=== PATIENT | male | born 1935 | race Caucasian/White ===

== ENCOUNTER 2018-06-25 13:23 | Inpatient (IN) | payer OTHER ==
[~2018-06-25] VITALS: Ht 180.3 cm; Wt 90.0 kg
[~2018-06-25 13:23] MED LIST: ASPI-1152 PO; ASPI-605 PO; FINA5TAB11 PO; FINA5TAB3 PO; GLIP2.5T3 PO; LISI-603 PO; LISI10TA5 PO; METF-440 PO; POLY15DR40 RIGHTEYE; SIMV20TA6 PO; SIMV40TA5 PO; TAMS0.4C34 PO; TRAZ-182 PO
[2018-06-25] MEDS ORDERED: PIPERACILLIN /TAZOBACTAM 3.375 G in IV D5W 50 ML IV ONE (14:00)
[2018-06-25] MEDS ORDERED: VANCOMYCIN 1 GM in IV D5W 250 ML IV ONE (14:00)
[2018-06-25 14:05] LABS: BASOPHILS # (AUTO) 0.1 /CMM (0.0-0.2); BASOPHILS % (AUTO) 0.9 % (0.0-2.0); EOSINOPHILS % (AUTO) 0.1 % (0.0-6.0); HEMATOCRIT 36 % (39-51); HEMOGLOBIN 12.6 g/dL (13.5-17.5); LYMPHOCYTES # (AUTO) 0.9 /CMM (0.8-4.8); LYMPHOCYTES % (AUTO) 5.8 % (20.0-44.0); MEAN CORPUSCULAR HGB CONC 35 g/dl (31.0-36.0); MEAN CORPUSCULAR VOLUME 94 fL (80-96); MONOCYTES # (AUTO) 1.1 /CMM (0.1-1.30); MONOCYTES % (AUTO) 7.5 % (2.0-12.0); NEUTROPHILS # (AUTO) 12.8 /CMM (1.8-8.9); NEUTROPHILS % (AUTO) 85.7 % (43.0-81.0); PLATELET COUNT (AUTO) 220 /CMM (150-450); RDW COEFFICIENT OF VARIATION 13.8 (11.5-15.0); RED BLOOD CELL COUNT(AUTO) 3.81 MIL/uL (4.5-6.0); WHITE BLOOD COUNT (AUTO) 14.9 K/uL (4.3-11.0)
[2018-06-25 14:14] LABS: CALCIUM, SERUM 9.1 mg/dL (8.5-10.1); CARBON DIOXIDE 26 mmol/L (21-32); CHLORIDE 105 mmol/L (98-107); GLUCOSE 105 mg/dL (74-106); POTASSIUM 3.8 mmol/L (3.5-5.1); SODIUM SERUM 139 mmol/L (136-145); UREA NITROGEN, BLOOD 14 mg/dL (7-18)
[2018-06-25 14:18] LABS: INR 0.92 (0.85-1.15)
[2018-06-25 14:22] LABS: TROPONIN I < 0.017 ng/mL (0.00-0.056)
[2018-06-25 14:30] LABS: ALANINE AMINOTRANSFERASE 32 U/L (12-78); ALBUMIN 3.5 g/dL (3.4-5.0); ALKALINE PHOSPHATASE 78 U/L (46-116); ASPARTATE AMINOTRANSFERASE 18 U/L (15-37); BILIRUBIN,DIRECT 0.2 mg/dL (0.0-0.2); BILIRUBIN,TOTAL 0.8 mg/dL (0.2-1.0); TOTAL PROTEIN, SERUM 7.1 g/dL (6.4-8.2)
[2018-06-25 14:32] LABS: LYMPHOCYTES % (MANUAL) 6 % (16-48); NEUTROPHILS % (MANUAL) 86 (42-76); REACTIVE LYMPHOCYTES 8 % (0-0)
[2018-06-25] MEDS ORDERED: AMLO10TA6 PO (14:57)
[2018-06-25] MEDS ORDERED: ATOR40TA PO (14:58)
--- NOTE | 2018-06-25 17:34 | NUR ---
PANEL ON-CALL PAGED
--- NOTE | 2018-06-25 18:39 | NUR ---
REPORT GIVEN TO THE FLOOR NURSE; ACCEPTED BY SHAI GARG- CONTINUE PLAN OF CARE
[2018-06-25 18:50] VITALS: BP 142/62
--- NOTE | 2018-06-25 19:00 | NUR ---
RN OPENING NOTES PT AWAKE AND RESTING IN BED. FAMILY AT BEDSIDE. LABORATORY ENGINEER BRITANY LOVE IN PT ROOMS INTERVIEWING FOR ADMISSION. PT STATES THAT HE STEPPED ON BROKEN GLASS ABOUT 3 DAYS AGO AND HAS NOTICED THAT HIS RIGHT FOOT/LEG HAS BECOME INCREASINGLY MORE RED AND WARM TO THE TOUCH. THE PATIENT HAS A LEFT FOREARM IV #20 INTACT AND PATENT. NO COMPLAINTS OF PAIN , DISTRESS OR SOB AT THIS TIME. PER DAY SHIFT NURSE PATIENT ARRIVED ON TO THE UNIT AT 1820. WILL COMPLETE THE PATIENT'S ADMISSION. ORIENTED PATIENT TO THE USE OF THE CALL LIGHT. SAFETY PRECAUTIONS IN PLACE, BED IN LOWEST LOCKED POSITION, X2 SIDE RAILS UP AND CALL LIGHT WITHIN REACH. WILL CONTINUE TO MONITOR.
[2018-06-25] MEDS ORDERED: ACETAMINOPHEN 325 MG TABLET PO PRN (20:00)
[2018-06-25] MEDS ORDERED: Z GUARD REMEDY 2 OZ OINT TP PRN (20:00)
[2018-06-25] MEDS ORDERED: ONDANSETRON HCL/PF 4 MG/2 ML VIAL IVP PRN (20:00)
[2018-06-25] MEDS ORDERED: MORPHINE SULFATE INJ 4 MG/ML DISP.SYRIN IV PRN (20:00)
[2018-06-25] MEDS ORDERED: HYDROCODONE/APAP 5/325MG 1 EACH TABLET PO PRN (20:00)
[2018-06-25] MEDS ORDERED: MAGNESIUM HYDROXIDE 30 ML UDC PO PRN (20:00)
[2018-06-25] MEDS ORDERED: MAG HYDROX/AL HYDROX/SIMETH 30 ML UDC PO PRN (20:00)
[2018-06-25] MEDS ORDERED: FEE PK DOSING 1 MIN EA MC ONE (20:04)
[2018-06-25 20:17] VITALS: BP 129/67
[2018-06-25] MEDS: PIPERACILLIN /TAZOBACTAM 3.375 G in IV D5W 50 ML IV SCH (21:27)
[2018-06-25] MEDS: ATORVASTATIN 40 MG TABLET PO SCH (21:28)
[2018-06-25] MEDS: ENOXAPARIN SODIUM 40 MG/0.4 ML DISP.SYRIN SQ SCH (21:29)
[2018-06-26] MEDS: VANCOMYCIN 1 GM in IV D5W 250 ML IV SCH ×2 (01:34→14:18)
[2018-06-26] MEDS: PIPERACILLIN /TAZOBACTAM 3.375 G in IV D5W 50 ML IV SCH ×4 (03:22→20:43)
--- NOTE | 2018-06-26 06:35 | NUR ---
RN CLOSING NOTES PT RESTING IN BED. NO COMPLAINTS OF PAIN, SOB OR DISTRESS OVERNIGHT. THE PATIENT HAS A LEFT FOREARM IV #20 INTACT AND PATENT. SAFETY PRECAUTIONS IN PLACE, BED IN LOWEST LOCKED POSITION, X2 SIDE RAILS UP AND CALL LIGHT WITHIN REACH. WILL ENDORSE TO DAY SHIFT NURSE FOR CONTINUITY OF CARE.
[2018-06-26 07:04] LABS: BASOPHILS % (AUTO) 0.3 % (0.0-2.0); EOSINOPHILS % (AUTO) 1.3 % (0.0-6.0); HEMATOCRIT 36 % (39-51); HEMOGLOBIN 11.9 g/dL (13.5-17.5); LYMPHOCYTES # (AUTO) 1.5 /CMM (0.8-4.8); LYMPHOCYTES % (AUTO) 13.7 % (20.0-44.0); MEAN CORPUSCULAR HGB CONC 33 g/dl (31.0-36.0); MEAN CORPUSCULAR VOLUME 96 fL (80-96); MONOCYTES # (AUTO) 1.1 /CMM (0.1-1.30); MONOCYTES % (AUTO) 9.9 % (2.0-12.0); NEUTROPHILS # (AUTO) 8.2 /CMM (1.8-8.9); NEUTROPHILS % (AUTO) 74.8 % (43.0-81.0); PLATELET COUNT (AUTO) 224 /CMM (150-450); RDW COEFFICIENT OF VARIATION 14.8 (11.5-15.0)
[2018-06-26 07:13] LABS: CALCIUM, SERUM 8.8 mg/dL (8.5-10.1); CARBON DIOXIDE 25 mmol/L (21-32); CHLORIDE 105 mmol/L (98-107); CREATININE 0.9 mg/dL (0.6-1.3); GLUCOSE 70 mg/dL (74-106); POTASSIUM 3.1 mmol/L (3.5-5.1); SODIUM SERUM 141 mmol/L (136-145); UREA NITROGEN, BLOOD 12 mg/dL (7-18)
[2018-06-26 07:14] LABS: MAGNESIUM 1.7 mg/dL (1.8-2.4); PHOSPHORUS 3.6 mg/dL (2.5-4.9)
--- NOTE | 2018-06-26 07:15 | NUR ---
MSRN. PT RECEIVED A&0X3. PT TOLERATING ROOM AIR WITHOUT DISTRESS AND DENIES PAIN AT THIS TIME. PT WITH IVC AT L FA INTACT AND SALINE FLUSH PATENT. PT WITH R LE ELEVATED, EXT IS HOT TO TOUCH WITH EDEMA +1, CMS, CAP REFILL <2SECS. PT BED IN LOWEST LOCKED POSITION WITH HANDRAILSX2 AND CALL WHELAN AND URINAL WITHIN REACH. PT LABS RV'D WITH PT AND PT BRIEFED ON TODAY'S POC, PT IS WITHOUT CONCERN OR COMPLAINT AT THIS TIME, WILL CONTINUE POC.
[2018-06-26 07:21] LABS: CHOLESTEROL 100 mg/dL (<200); HDL CHOLESTEROL 44 mg/dL (40-60); LDL 56 mg/dL (0-99); TRIGLYCERIDES 70 mg/dL (30-150)
[2018-06-26 08:00] VITALS: BP 131/76
[2018-06-26] MEDS ORDERED: POTASSIUM CHLORIDE 20 MEQ TAB.PRT.SR PO ONE (09:00)
[2018-06-26] MEDS: glipiZIDE XL 2.5 MG TAB.OSM.24 PO SCH (09:18)
[2018-06-26] MEDS: TAMSULOSIN 0.4 MG CAP.SR.24H PO SCH (09:18)
[2018-06-26] MEDS: FINASTERIDE (5 MG) 5 MG TABLET PO SCH (09:18)
[2018-06-26] MEDS: AMLODIPINE BESYLATE 10 MG TABLET PO SCH (09:19)
[2018-06-26] MEDS: LISINOPRIL (10MG) 10 MG TABLET PO SCH (09:19)
[2018-06-26] MEDS ORDERED: LIDOCAINE 1% INJ 50 ML MDV IJ STA (10:29)
[2018-06-26] MEDS: Magnesium 1GM/D5W 100ML PREMIX 100 ML IV SCH ×2 (10:40→17:12)
--- NOTE | 2018-06-26 10:50 | NUR ---
PT RV WITH MD HDEZ, DEBRIDEMENT PLANNED TODAY, CONSENT IN CHART.
[2018-06-26 16:00] VITALS: BP 119/59
--- NOTE | 2018-06-26 16:00 | NUR ---
PT WALKING AROUND ON BANDAGE, WITH BLEED THROUGH DRESSING. PT VERY ANXIOUS R/T TO HIS WORK. DRESSING REPLACED, NO CONT BLEEDING. PT REMINDED NOT TO WALK ON FOOT AT THIS TIME
--- NOTE | 2018-06-26 19:26 | NUR ---
MSRN. PT REMAINS A&0X3, TOLERATING ROOM AIR AND DENIES PAIN AT THIS TIME. PT WITH IVC AT L FA INTACT AND SL. PT WITH R LE ELEVATED AND DRESSING INTACT. PT BED IN LOWEST LOCKED POSITION WITH HANDRAILSX2 AND CALL WHELAN AND URINAL WITHIN REACH. ALL DAY NURSE DUTIES ATTENDED TO AND PT IS WITHOUT CONCERN OR COMPLAINT. WILL ENDORSE TO NIGHT NURSE AT BEDSIDE FOR DASH.
--- NOTE | 2018-06-26 19:30 | NUR ---
MS RN NOTES RECEIVED ON BED A/O X4,S/P RIGHT FOOT DEBRIDEMENT BY DR LOBO TODAY.DRESSING INTACT AND DRY,ELEVATED ON PILLOWS.SALINE LOCK LFA INTACT AND PATENT.DENIES PAIN AT THE MOMENT.CALL LIGHT IN REACH,NEEDS ANTICIPATED.
--- NOTE | 2018-06-26 19:35 | NUR ---
JUSTOWRITER OPERATOR NOTES RECEIVED ON BED,A/O X3,BREATHING NORMAL,WITH GARBLED SPEECH DUE TO TOUNGE CA.NOTED TOO MUCH SECRETIONS,SUCTION SELF.WITH JEVITY 1.2 GT FEEDING AT 240ML/HR RATE 5X A DAY.WITH IVF OF NS 75ML/HR RATE RUNNING IN LEFT FOOT,SALINE LOCK LAC # 20 INTACT AND PATENT.WILL CONTINUE TO MONITOR STATUS,CALL LIGHT IN REACH,NEEDS ANTICIPATED.
[2018-06-26 20:00] VITALS: BP 120/70
[2018-06-26] MEDS: ENOXAPARIN SODIUM 40 MG/0.4 ML DISP.SYRIN SQ SCH (20:47)
[2018-06-26] MEDS: ATORVASTATIN 40 MG TABLET PO SCH (21:46)
--- NOTE | 2018-06-26 22:35 | NUR ---
MS RN NOTES PAIN MANAGEMENT C/O RIGHT FOOT PAIN 6/10 ON PAIN SCALE,MEDICATED WITH NORCO 5/325MG,1 TAB PO ORDERED.
[2018-06-27] MEDS: VANCOMYCIN 1 GM in IV D5W 250 ML IV SCH (01:59)
[2018-06-27] MEDS: PIPERACILLIN /TAZOBACTAM 3.375 G in IV D5W 50 ML IV SCH ×2 (03:10→08:40)
--- NOTE | 2018-06-27 06:37 | NUR ---
MS RN NOTES A/O X4,PAIN MANAGEMENT EFFECTIVE,IV ABX TOLERATED WELL.IN NO ACUTE DISTRESS.WILL ENDORSE TO DAY NURSE FOR DASH.
[2018-06-27 06:59] LABS: BASOPHILS # (AUTO) 0.1 /CMM (0.0-0.2); BASOPHILS % (AUTO) 0.8 % (0.0-2.0); HEMATOCRIT 37 % (39-51); HEMOGLOBIN 12.1 g/dL (13.5-17.5); LYMPHOCYTES # (AUTO) 1.5 /CMM (0.8-4.8); LYMPHOCYTES % (AUTO) 15.1 % (20.0-44.0); MEAN CORPUSCULAR HGB CONC 33 g/dl (31.0-36.0); MEAN CORPUSCULAR VOLUME 96 fL (80-96); MONOCYTES % (AUTO) 10.7 % (2.0-12.0); NEUTROPHILS % (AUTO) 71.4 % (43.0-81.0); PLATELET COUNT (AUTO) 229 /CMM (150-450); RDW COEFFICIENT OF VARIATION 14.3 (11.5-15.0); WHITE BLOOD COUNT (AUTO) 9.8 K/uL (4.3-11.0)
[2018-06-27 07:01] LABS: CALCIUM, SERUM 8.5 mg/dL (8.5-10.1); CARBON DIOXIDE 25 mmol/L (21-32); CHLORIDE 106 mmol/L (98-107); CREATININE 0.9 mg/dL (0.6-1.3); GLUCOSE 81 mg/dL (74-106); MAGNESIUM 2.3 mg/dL (1.8-2.4); POTASSIUM 3.4 mmol/L (3.5-5.1); SODIUM SERUM 141 mmol/L (136-145); UREA NITROGEN, BLOOD 10 mg/dL (7-18)
--- NOTE | 2018-06-27 07:59 | NUR ---
MS RN OPENING NOTES RECEIVED PT FROM NIGHTSHIFT NURSE IN STABLE CONDITION. PT IS A/O X4. NO SOB OR ACUTE SIGNS OF DISTRESS NOTED. RESPIRATIONS EVEN AND UNLABORED. PT ON RA AND SATING WELL. HE DENIES PAIN AT THIS TIME. IV TO LEFT FA NOTED TO BE PATENT AND INTACT. NO REDNESS OR SIGNS OF INFILTRATION NOTED. DRESSING TO RIGHT FOOT NOTED TO BE CLEAN, DRY, AND INTACT. BED IN LOW LOCKED POSITION, SIDE RAILS UP X2, CALL LIGHT WITHIN PT'S REACH. WILL CONTINUE TO MONITOR
[2018-06-27] MEDS ORDERED: SULF1TAB48 PO (08:12)
[2018-06-27] MEDS ORDERED: CIPR-262 PO (08:12)
[2018-06-27 08:19] VITALS: BP 128/70
[2018-06-27] MEDS ORDERED: POTASSIUM CHLORIDE 20 MEQ TAB.PRT.SR PO ONE (08:30)
[2018-06-27] MEDS: LISINOPRIL (10MG) 10 MG TABLET PO SCH (08:40)
[2018-06-27 08:41] VITALS: BP 128/70
[2018-06-27] MEDS: AMLODIPINE BESYLATE 10 MG TABLET PO SCH (08:41)
[2018-06-27] MEDS: glipiZIDE XL 2.5 MG TAB.OSM.24 PO SCH (08:41)
[2018-06-27] MEDS: FINASTERIDE (5 MG) 5 MG TABLET PO SCH (08:41)
[2018-06-27] MEDS: TAMSULOSIN 0.4 MG CAP.SR.24H PO SCH (08:42)
--- NOTE | 2018-06-27 12:46 | NUR ---
MS COOK TORTILLA NOTES PT WAS DISCHARGED FROM FACILITY IN STABLE CONDITION. ALL NEEDS WERE MET DURING SHIFT AND ORDERS CARRIED OUT ACCORDINGLY. ALL DUE MEDS GIVEN. WOUND CARE RENDERED PRIOR TO D/C BY . WOUND DRESSINGS NOTED TO BE CLEAN, DRY, AND INTACT. IV WAS SUCCESSFULLY REMOVED WITH NO COMPLICATIONS NOTED. D/C PHOTOS TAKEN AND PLACED IN PT'S CHART. PT NOTIFIED THAT [facility] WILL CONTACT HIM TO MAKE FURTHER ARRANGEMENTS. PRESCRIPTION CALLED IN TO PT'S PREFERRED PHARMACIST. PT ALSO PROVIDED WITH WRITTEN PRESCRIPTION. HE VERBALIZED FULL UNDERSTANDING OF D/C INSTRUCTIONS AND SIGNED ALL PAPERWORK. HE WAS SAFELY ESCORTED TO MAIN LOBBY AND LEFT VIA TAXI WITH ALL BELONGINGS
== END 2018-06-27 12:15 | disposition home health service (06) | DRG 623 ==
LOC: ER 13:27 → MED 18:32 → MERGE 18:32
PROVIDERS: ADMIT Internal Medicine; ATTEND Internal Medicine
PROC: 0JBQ0ZZ Excision of Right Foot Subcutaneous Tissue and Fascia, Open Approach (ICD-10-PCS; principal; 2018-06-26)
DX: E11.621 Type 2 diabetes mellitus with foot ulcer (principal); L03.115 Cellulitis of right lower limb; N40.0 Benign prostatic hyperplasia without lower urinary tract symptoms; E78.5 Hyperlipidemia, unspecified; H26.9 Unspecified cataract; E11.42 Type 2 diabetes mellitus with diabetic polyneuropathy; I10 Essential (primary) hypertension; H54.40 Blindness, one eye, unspecified eye; Z79.84 Long term (current) use of oral hypoglycemic drugs; E87.6 Hypokalemia; D63.8 Anemia in other chronic diseases classified elsewhere; S91.319A Laceration without foreign body, unspecified foot, initial encounter; L97.519 Non-pressure chronic ulcer of other part of right foot with unspecified severity; W25.XXXA Contact with sharp glass, initial encounter
CPT/HCPCS: 36415; 71045-TC; 73630-TC; 80048-TC; 80061-TC; 80076-TC; 83605-TC; 83735-TC; 84100-TC; 84443-TC; 84484-TC; 85025-TC; 85730-TC; 87040-TC; 87070-TC; 87081-TC; 93971-TC; A4606; A6253; A6402; A6403; A6407; J1650; J2543; J3370; J3475; J3490; J7050; J7060; Z7610

== ENCOUNTER 2018-07-05 20:00 | Emergency (ER) | payer OTHER ==
[~2018-07-05] VITALS: Ht 180.3 cm; Wt 89.8 kg
[~2018-07-05 20:00] MED LIST changes: +AMLO10TA6 PO; -ASPI-1152 PO; +ATOR40TA PO; +CIPR-262 PO; -POLY15DR40 RIGHTEYE; -SIMV40TA5 PO; +SULF1TAB48 PO; -TRAZ-182 PO
[2018-07-05 20:06] VITALS: BP 113/60
[2018-07-06] MEDS ORDERED: CIPR-262 PO (11:50)
[2018-07-06] MEDS ORDERED: SULF1TAB48 PO (11:50)
[2018-07-08] MEDS ORDERED: VANC1PLA11 IV (08:23)
== END 2018-07-05 20:28 | disposition home or self-care (01) ==
LOC: ER 20:03
DX: E11.649 Type 2 diabetes mellitus with hypoglycemia without coma (principal); I10 Essential (primary) hypertension; E78.00 Pure hypercholesterolemia, unspecified; E78.5 Hyperlipidemia, unspecified; Z87.442 Personal history of urinary calculi; Z79.82 Long term (current) use of aspirin; Z60.2 Problems related to living alone
CPT/HCPCS: 82962; 99282; A4606; Z7610

== ENCOUNTER 2018-07-06 11:19 | Inpatient (IN) | payer OTHER ==
[~2018-07-06] VITALS: Ht 175.3 cm; Wt 93.9 kg
[2018-07-06] MEDS ORDERED: DEXTROSE 50%-WATER 50 ML DISP.SYRIN ONE ×2 (11:31→17:53)
[2018-07-06 11:45] LABS: BASOPHILS % (AUTO) 0.3 % (0.0-2.0); HEMATOCRIT 37 % (39-51); HEMOGLOBIN 12.2 g/dL (13.5-17.5); LYMPHOCYTES # (AUTO) 0.8 /CMM (0.8-4.8); LYMPHOCYTES % (AUTO) 12.6 % (20.0-44.0); MEAN CORPUSCULAR HGB CONC 33 g/dl (31.0-36.0); MEAN CORPUSCULAR VOLUME 92 fL (80-96); MONOCYTES # (AUTO) 0.5 /CMM (0.1-1.30); MONOCYTES % (AUTO) 7.4 % (2.0-12.0); NEUTROPHILS # (AUTO) 4.8 /CMM (1.8-8.9); NEUTROPHILS % (AUTO) 79.7 % (43.0-81.0); PLATELET COUNT (AUTO) 432 /CMM (150-450); RDW COEFFICIENT OF VARIATION 13.9 (11.5-15.0); RED BLOOD CELL COUNT(AUTO) 3.98 MIL/uL (4.5-6.0); WHITE BLOOD COUNT (AUTO) 6.1 K/uL (4.3-11.0)
[2018-07-06] MEDS ORDERED: CIPR-262 PO (11:50)
[2018-07-06] MEDS ORDERED: SULF1TAB48 PO (11:50)
[2018-07-06 12:00] LABS: INR 0.95 (0.85-1.15)
[2018-07-06] MEDS ORDERED: IV NS 0.9% 500 ML BAG IV ONE (12:00)
[2018-07-06] MEDS ORDERED: DEXTROSE 50%-WATER 50 ML DISP.SYRIN IV ONE (12:00)
[2018-07-06 12:02] LABS: ALANINE AMINOTRANSFERASE 452 U/L (12-78); ALBUMIN 2.9 g/dL (3.4-5.0); ALKALINE PHOSPHATASE 509 U/L (46-116); ASPARTATE AMINOTRANSFERASE 274 U/L (15-37); BILIRUBIN,DIRECT 0.2 mg/dL (0.0-0.2); BILIRUBIN,TOTAL 0.4 mg/dL (0.2-1.0); CALCIUM, SERUM 9.3 mg/dL (8.5-10.1); CARBON DIOXIDE 24 mmol/L (21-32); CHLORIDE 107 mmol/L (98-107); CREATININE 1.2 mg/dL (0.6-1.3); GLUCOSE 53 mg/dL (74-106); POTASSIUM 4.4 mmol/L (3.5-5.1); SODIUM SERUM 140 mmol/L (136-145); TOTAL PROTEIN, SERUM 6.9 g/dL (6.4-8.2); UREA NITROGEN, BLOOD 9 mg/dL (7-18)
[2018-07-06 12:04] LABS: TROPONIN I < 0.017 ng/mL (0.00-0.056)
[2018-07-06 12:15] LABS: SERUM AMMONIA 22 umol/L (11-32)
[2018-07-06 12:27] LABS: THYROID STIMULATING HORMONE 2.661 uIU/mL (0.358-3.74)
[2018-07-06 14:16] LABS: APPEARANCE,URINE Clear (CLEAR); BILIRUBIN,URINE Negative (NEGATIVE); BLOOD, URINE Negative Ery/uL (NEGATIVE); COLOR,URINE Yellow (YELLOW); KETONES,URINE Negative (NEGATIVE); LEUKOCYTE ESTERASE ,URINE Negative (NEGATIVE); NITRITE, URINE Negative (NEGATIVE); PROTEIN,URINE Negative (NEGATIVE); UGLUCOSE Negative (NEGATIVE); UROBILINOGEN,URINE 0.2 EU/dL (0.2)
[2018-07-06 15:15] VITALS: BP 123/56
[2018-07-06 16:00] VITALS: BP 123/56
[2018-07-06] MEDS ORDERED: TRAZODONE 50 MG TABLET PO PRN (16:30)
[2018-07-06] MEDS ORDERED: IV D5/0.45 NACL 1,000 ML IV PRN (16:30)
[2018-07-06] MEDS ORDERED: ACETAMINOPHEN 325 MG TABLET PO PRN (16:30)
[2018-07-06] MEDS: BLOOD SUGAR DIAGNOSTIC 1 EACH STRIP IN SCH ×4 (18:28→22:14)
[2018-07-06] MEDS ORDERED: DEXTROSE 50%-WATER 50 ML DISP.SYRIN IVP ONE (18:30)
[2018-07-06 20:00] VITALS: BP 119/64
[2018-07-06 20:23] VITALS: BP 119/64
[2018-07-06] MEDS ORDERED: ZOLPIDEM TARTRATE 5 MG TABLET PO PRN (20:30)
[2018-07-06] MEDS ORDERED: HYDROCODONE/APAP 5/325MG 1 EACH TABLET PO PRN (20:30)
[2018-07-06] MEDS ORDERED: Sodium Chloride 154 MEQ in IV 10% DEXTROSE 1,000 ML IV PRN (21:00)
[2018-07-06] MEDS ORDERED: VANCOMYCIN 1.5 GM in IV D5W 500ml IV ONE (21:00)
[2018-07-06] MEDS ORDERED: VANCOMYCIN 1 GM VIAL ONE (21:15)
[2018-07-06] MEDS ORDERED: MAGNESIUM HYDROXIDE 30 ML UDC PO PRN (21:30)
[2018-07-06] MEDS: ATORVASTATIN 40 MG TABLET PO SCH (21:33)
[2018-07-06] MEDS: SIMVASTATIN 40 MG TABLET PO SCH (21:33)
[2018-07-06] MEDS: TAMSULOSIN 0.4 MG CAP.SR.24H PO SCH (21:33)
[2018-07-07] VITALS: BP 124/64
[2018-07-07] MEDS ORDERED: DEXTROSE 50%-WATER 50 ML DISP.SYRIN IVP PRN
[2018-07-07] MEDS ORDERED: IV 10% DEXTROSE 1,000 ML IV PRN
[2018-07-07] MEDS ORDERED: PIPERACILLIN /TAZOBACTAM 3.375 G VIAL IV ONE ×2 (00:07→05:11)
[2018-07-07] MEDS: PIPERACILLIN /TAZOBACTAM 3.375 G in IV D5W 50 ML IV SCH ×4 (00:14→17:00)
[2018-07-07] MEDS ORDERED: BISACODYL (5 MG) 5 MG TABLET.DR PO ONE (01:00)
[2018-07-07 04:00] VITALS: BP 146/74
[2018-07-07] MEDS ORDERED: NEOMYCIN OP (05:02)
[2018-07-07] MEDS: BLOOD SUGAR DIAGNOSTIC 1 EACH STRIP IN SCH ×4 (05:58→21:44)
[2018-07-07] MEDS ORDERED: FEE PK DOSING 1 MIN EA MC ONE (07:30)
[2018-07-07 08:00] VITALS: BP 100/57
[2018-07-07 08:58] LABS: ALANINE AMINOTRANSFERASE 424 U/L (12-78); ALBUMIN 2.8 g/dL (3.4-5.0); ALKALINE PHOSPHATASE 501 U/L (46-116); ASPARTATE AMINOTRANSFERASE 226 U/L (15-37); BASOPHILS % (AUTO) 0.2 % (0.0-2.0); BILIRUBIN,DIRECT 0.2 mg/dL (0.0-0.2); BILIRUBIN,TOTAL 0.4 mg/dL (0.2-1.0); CALCIUM, SERUM 9.2 mg/dL (8.5-10.1); CARBON DIOXIDE 24 mmol/L (21-32); CHLORIDE 105 mmol/L (98-107); CREATININE 1.1 mg/dL (0.6-1.3); GLUCOSE 112 mg/dL (74-106); HEMATOCRIT 35 % (39-51); HEMOGLOBIN 11.8 g/dL (13.5-17.5); LYMPHOCYTES % (AUTO) 17.1 % (20.0-44.0); MEAN CORPUSCULAR HGB CONC 34 g/dl (31.0-36.0); MEAN CORPUSCULAR VOLUME 97 fL (80-96); MONOCYTES # (AUTO) 0.6 /CMM (0.1-1.30); MONOCYTES % (AUTO) 9.9 % (2.0-12.0); NEUTROPHILS # (AUTO) 4.1 /CMM (1.8-8.9); NEUTROPHILS % (AUTO) 72.8 % (43.0-81.0); PLATELET COUNT (AUTO) 423 /CMM (150-450); POTASSIUM 4.7 mmol/L (3.5-5.1); RDW COEFFICIENT OF VARIATION 14.7 (11.5-15.0); RED BLOOD CELL COUNT(AUTO) 3.64 MIL/uL (4.5-6.0); SODIUM SERUM 138 mmol/L (136-145); TOTAL PROTEIN, SERUM 6.8 g/dL (6.4-8.2); UREA NITROGEN, BLOOD 7 mg/dL (7-18); WHITE BLOOD COUNT (AUTO) 5.7 K/uL (4.3-11.0)
[2018-07-07 09:07] LABS: THYROID STIMULATING HORMONE 4.782 uIU/mL (0.358-3.74)
[2018-07-07] MEDS ORDERED: BISACODYL SUPP (10 MG) 10 MG/SUPP.RECT SUPP.RECT RC PRN (09:30)
[2018-07-07] MEDS: LISINOPRIL (10MG) 10 MG TABLET PO SCH (09:31)
[2018-07-07] MEDS: VANCOMYCIN 1 GM in IV D5W 250 ML IV SCH ×2 (09:31→21:09)
[2018-07-07] MEDS: FINASTERIDE (5 MG) 5 MG TABLET PO SCH (09:31)
[2018-07-07] MEDS ORDERED: DEXTROSE 50%-WATER 50 ML DISP.SYRIN IV PRN (12:30)
[2018-07-07 16:00] VITALS: BP 115/66
[2018-07-07] MEDS: INSULIN REGULAR, HUMAN 100 UNIT/ML 3 ML VIAL SQ PRN ×2 (17:28→21:47)
[2018-07-07 20:21] VITALS: BP 112/57
[2018-07-07] MEDS: TAMSULOSIN 0.4 MG CAP.SR.24H PO SCH (21:08)
[2018-07-07] MEDS: SIMVASTATIN 40 MG TABLET PO SCH (21:08)
[2018-07-07] MEDS: ATORVASTATIN 40 MG TABLET PO SCH (21:08)
[2018-07-08] MEDS: PIPERACILLIN /TAZOBACTAM 3.375 G in IV D5W 50 ML IV SCH ×3 (00:22→13:01)
[2018-07-08] MEDS: BLOOD SUGAR DIAGNOSTIC 1 EACH STRIP IN SCH ×2 (06:03→11:59)
[2018-07-08 06:58] LABS: BASOPHILS % (AUTO) 0.1 % (0.0-2.0); HEMATOCRIT 34 % (39-51); HEMOGLOBIN 11.4 g/dL (13.5-17.5); LYMPHOCYTES # (AUTO) 1.2 /CMM (0.8-4.8); LYMPHOCYTES % (AUTO) 22.2 % (20.0-44.0); MEAN CORPUSCULAR HGB CONC 34 g/dl (31.0-36.0); MEAN CORPUSCULAR VOLUME 96 fL (80-96); MONOCYTES # (AUTO) 0.6 /CMM (0.1-1.30); MONOCYTES % (AUTO) 10.8 % (2.0-12.0); NEUTROPHILS # (AUTO) 3.7 /CMM (1.8-8.9); NEUTROPHILS % (AUTO) 66.9 % (43.0-81.0); PLATELET COUNT (AUTO) 443 /CMM (150-450); RDW COEFFICIENT OF VARIATION 15.2 (11.5-15.0); RED BLOOD CELL COUNT(AUTO) 3.54 MIL/uL (4.5-6.0); WHITE BLOOD COUNT (AUTO) 5.6 K/uL (4.3-11.0)
[2018-07-08 07:15] LABS: CARBON DIOXIDE 28 mmol/L (21-32); CHLORIDE 106 mmol/L (98-107); CREATININE 1.1 mg/dL (0.6-1.3); GLUCOSE 132 mg/dL (74-106); SODIUM SERUM 140 mmol/L (136-145); UREA NITROGEN, BLOOD 11 mg/dL (7-18)
[2018-07-08 08:00] VITALS: BP 138/83
[2018-07-08] MEDS ORDERED: VANC1PLA11 IV (08:23)
[2018-07-08 08:36] VITALS: BP 138/83
[2018-07-08] MEDS: FINASTERIDE (5 MG) 5 MG TABLET PO SCH (08:36)
[2018-07-08] MEDS: LISINOPRIL (10MG) 10 MG TABLET PO SCH (08:36)
[2018-07-08] MEDS ORDERED: METFORMIN 500 MG TABLET PO SCH (09:00)
[2018-07-08] MEDS ORDERED: NEO/POLY/DEXA OPHTH OINT 3.5 GM TUBE LEFTEYE SCH (09:00)
[2018-07-08 09:30] LABS: ALBUMIN 2.6 g/dL (3.4-5.0); BILIRUBIN,DIRECT 0.1 mg/dL (0.0-0.2); BILIRUBIN,TOTAL 0.4 mg/dL (0.2-1.0); TOTAL PROTEIN, SERUM 6.5 g/dL (6.4-8.2)
[2018-07-08] MEDS: VANCOMYCIN 1 GM in IV D5W 250 ML IV SCH (09:41)
[2018-07-08] MEDS: INSULIN REGULAR, HUMAN 100 UNIT/ML 3 ML VIAL SQ PRN (12:00)
== END 2018-07-08 14:45 | disposition home health service (06) | DRG 623 ==
LOC: ER 11:21 → TELE 14:33 → MED 07-07 08:57
PROVIDERS: ADMIT Internal Medicine; ATTEND Internal Medicine
PROC: 0JBQ0ZZ Excision of Right Foot Subcutaneous Tissue and Fascia, Open Approach (ICD-10-PCS; principal; 2018-07-08)
PROC: 02HV33Z Insertion of Infusion Device into Superior Vena Cava, Percutaneous Approach (ICD-10-PCS; 2018-07-08)
PROC: B548ZZA Ultrasonography of Superior Vena Cava, Guidance (ICD-10-PCS; 2018-07-08)
DX: E11.621 Type 2 diabetes mellitus with foot ulcer (principal); L03.115 Cellulitis of right lower limb; E11.649 Type 2 diabetes mellitus with hypoglycemia without coma; E78.5 Hyperlipidemia, unspecified; N40.0 Benign prostatic hyperplasia without lower urinary tract symptoms; I10 Essential (primary) hypertension; H54.62 Unqualified visual loss, left eye, normal vision right eye; R74.0 Nonspecific elevation of levels of transaminase and lactic acid dehydrogenase [LDH]; I95.9 Hypotension, unspecified; H26.9 Unspecified cataract; L97.519 Non-pressure chronic ulcer of other part of right foot with unspecified severity; D63.8 Anemia in other chronic diseases classified elsewhere; E11.42 Type 2 diabetes mellitus with diabetic polyneuropathy; Z79.82 Long term (current) use of aspirin; Z87.442 Personal history of urinary calculi
CPT/HCPCS: 36415; 36569; 71045-TC; 73630-TC; 76705-TC; 80048-TC; 80074; 80076-TC; 80202-TC; 81000-TC; 82140-TC; 82962-TC; 83605-TC; 84443-TC; 84484-TC; 85025-TC; 85730-TC; 86140-TC; 87040-TC; 87081-TC; 87086-TC; A4606; A6403; A6407; G0378; G0480; J1815; J2543; J3370; J3490; J7040; J7050; J7060; Z7610

== ENCOUNTER 2018-07-14 06:35 | Emergency (ER) | payer OTHER ==
[~2018-07-14] VITALS: Ht 180.3 cm; Wt 89.8 kg
[~2018-07-14 06:35] MED LIST changes: -AMLO10TA6 PO; -ATOR40TA PO; -FINA5TAB11 PO; -GLIP2.5T3 PO; -LISI-603 PO; +NEOMYCIN OP; -SIMV20TA6 PO; -SULF1TAB48 PO; +VANC1PLA11 IV
--- NOTE | 2018-07-14 06:41 | NUR ---
TO ER BED 10 C/O SUPRAPUBIC ABDOMINAL PAIN. SECONDARY TO CONSTIPATION SINCE "SUNDAY". AA/OX4. AMBULATED TO HOSPITAL BED WITH STABLE GAIT. NO S/S SOB. PEDAL PULSES EQUAL AND PRESENT. MOVES ALL EXTREMITIES WELL. ACTIVE BOWEL SOUNDS NOTED. NAD. VSS. STABLE CONDITION. WILL CONTINUE TO MONITOR.
--- NOTE | 2018-07-14 06:43 | NUR ---
Charlie borden in ED - 07/14/18 at 0719 by KAHLIL XRAY AT BEDSIDE.
[2018-07-14] MEDS ORDERED: MINERAL OIL 133 ML (PYXIS) 1 EA ENEMA RC ONE ×4 (07:00→08:11)
--- NOTE | 2018-07-14 07:23 | NUR ---
ENDORSED TO ON COMING SHIFT RN HILARIO. PT STABLE CONDITION. VSS. NAD.
--- NOTE | 2018-07-14 07:24 | NUR ---
X RAY AT BEDSIDE
--- NOTE | 2018-07-14 08:29 | NUR ---
PATIENT REMAINS STABLE WITH NO DISTRESS NOTED. WILL CONTINUE TO MONITOR
[2018-07-14 08:50] VITALS: BP 148/74
--- NOTE | 2018-07-14 08:50 | NUR ---
Patient discharged to home in stable condition. Written and verbal after care instructions given. Patient verbalizes understanding of instruction.
== END 2018-07-14 08:50 | disposition home or self-care (01) ==
LOC: ER 06:45
DX: K59.00 Constipation, unspecified (principal); E11.9 Type 2 diabetes mellitus without complications; E78.00 Pure hypercholesterolemia, unspecified; Z87.442 Personal history of urinary calculi; Z60.2 Problems related to living alone; Z79.84 Long term (current) use of oral hypoglycemic drugs; Z79.82 Long term (current) use of aspirin; Z79.899 Other long term (current) drug therapy
CPT/HCPCS: 74018; A4606; Z7610

== ENCOUNTER 2018-08-14 09:36 | Emergency (ER) | payer OTHER ==
[~2018-08-14] VITALS: Ht 180.3 cm; Wt 89.8 kg
--- NOTE | 2018-08-14 09:59 | NUR ---
PT BIB SELF, C/O ABDOMINAL PAIN, CONSTIPATION,NO BM X 2 DAYS, AWAKE AND ALERT, NOT IN CP DISTRESS, VS STABLE, AWAITING, DR. PINA FOR EVAL
--- NOTE | 2018-08-14 10:02 | NUR ---
DR. PINA AT BEDSIDE FOR EVAL.
[2018-08-14 10:38] LABS: BASOPHILS % (AUTO) 0.6 % (0.0-2.0); EOSINOPHILS % (AUTO) 1.5 % (0.0-6.0); HEMATOCRIT 40 % (39-51); HEMOGLOBIN 13.5 g/dL (13.5-17.5); MEAN CORPUSCULAR HGB CONC 34 g/dl (31.0-36.0); MEAN CORPUSCULAR VOLUME 95 fL (80-96); MONOCYTES # (AUTO) 0.6 /CMM (0.1-1.30); NEUTROPHILS # (AUTO) 4.5 /CMM (1.8-8.9); NEUTROPHILS % (AUTO) 72.9 % (43.0-81.0); PLATELET COUNT (AUTO) 244 /CMM (150-450); RED BLOOD CELL COUNT(AUTO) 4.21 MIL/uL (4.5-6.0); WHITE BLOOD COUNT (AUTO) 6.2 K/uL (4.3-11.0)
[2018-08-14 10:50] LABS: ALANINE AMINOTRANSFERASE 54 U/L (12-78); ALBUMIN 3.8 g/dL (3.4-5.0); ALKALINE PHOSPHATASE 104 U/L (46-116); ASPARTATE AMINOTRANSFERASE 31 U/L (15-37); BILIRUBIN,DIRECT 0.1 mg/dL (0.0-0.2); BILIRUBIN,TOTAL 0.5 mg/dL (0.2-1.0); CALCIUM, SERUM 9.1 mg/dL (8.5-10.1); CARBON DIOXIDE 29 mmol/L (21-32); CHLORIDE 103 mmol/L (98-107); GLUCOSE 147 mg/dL (74-106); LIPASE 181 U/L (73-393); POTASSIUM 4.2 mmol/L (3.5-5.1); SODIUM SERUM 139 mmol/L (136-145); TOTAL PROTEIN, SERUM 7.3 g/dL (6.4-8.2)
[2018-08-14 10:54] LABS: UREA NITROGEN, BLOOD 10 mg/dL (7-18)
[2018-08-14] MEDS ORDERED: IOHEXOL-300 100 ML VIAL IV ONE ×2 (11:18→11:24)
[2018-08-14] MEDS ORDERED: CT SWABBABLE VALVE TRANS SET 1 EA INFUS.SET MC ONE ×2 (11:18→11:24)
[2018-08-14] MEDS ORDERED: IV NS 0.9% 250 ML IV ONE ×2 (11:18→11:24)
--- NOTE | 2018-08-14 11:23 | NUR ---
PT WHEELED TO CT SCAN VIA [employer]
--- NOTE | 2018-08-14 11:37 | NUR ---
PT IS BACK FROM CT SCAN
[2018-08-14] MEDS ORDERED: NA PHOS,M-B/NA PHOS,DI-BA 1 EA ENEMA RC ONE ×2 (12:30→12:34)
--- NOTE | 2018-08-14 12:45 | NUR ---
PT HAS POSITIVE BOWEL MOVEMENT AFTER ADMINISTRATION OF FLEET ENEMA.
[2018-08-14 13:04] VITALS: BP 135/78
--- NOTE | 2018-08-14 13:06 | NUR ---
IV removed. Catheter intact and site benign. Pressure and 4x4 applied to site. No bleeding noted. Patient discharged to home in stable condition. Written and verbal after care instructions given. Patient verbalizes understanding of instruction.
== END 2018-08-14 13:00 | disposition home or self-care (01) ==
LOC: ER 09:37
DX: K59.00 Constipation, unspecified (principal); E11.621 Type 2 diabetes mellitus with foot ulcer; L97.509 Non-pressure chronic ulcer of other part of unspecified foot with unspecified severity; E11.319 Type 2 diabetes mellitus with unspecified diabetic retinopathy without macular edema; H54.40 Blindness, one eye, unspecified eye; N40.0 Benign prostatic hyperplasia without lower urinary tract symptoms; E78.5 Hyperlipidemia, unspecified; E78.00 Pure hypercholesterolemia, unspecified; Z87.442 Personal history of urinary calculi; Z60.2 Problems related to living alone; Z79.82 Long term (current) use of aspirin
CPT/HCPCS: 36415; 80048-TC; 80076-TC; 83690-TC; 85025-TC; A4606; J7050; Q9967; Z7610

== ENCOUNTER 2018-10-30 17:21 | Emergency (ER) | payer OTHER ==
[~2018-10-30] VITALS: Ht 180.3 cm; Wt 92.5 kg
--- NOTE | 2018-10-30 17:34 | NUR ---
PT BIB FAMILY FROM HOME FOR LT LEG SWELLING; PT ON MONITOR, RESPIRATIONS EVEN AND UNLABORED, NO SOB, NAD NOTED, VSS, PENDING ER PROVIDER FEIAL
[2018-10-30 18:00] LABS: BASOPHILS % (AUTO) 0.6 % (0.0-2.0); EOSINOPHILS % (AUTO) 1.5 % (0.0-6.0); HEMATOCRIT 37 % (39-51); HEMOGLOBIN 12.6 g/dL (13.5-17.5); LYMPHOCYTES # (AUTO) 1.3 /CMM (0.8-4.8); MEAN CORPUSCULAR HGB CONC 34 g/dl (31.0-36.0); MEAN CORPUSCULAR VOLUME 94 fL (80-96); MONOCYTES # (AUTO) 0.6 /CMM (0.1-1.30); MONOCYTES % (AUTO) 10.5 % (2.0-12.0); NEUTROPHILS # (AUTO) 3.6 /CMM (1.8-8.9); NEUTROPHILS % (AUTO) 64.4 % (43.0-81.0); PLATELET COUNT (AUTO) 223 /CMM (150-450); RED BLOOD CELL COUNT(AUTO) 3.98 MIL/uL (4.5-6.0); WHITE BLOOD COUNT (AUTO) 5.6 K/uL (4.3-11.0)
[2018-10-30 18:08] LABS: CALCIUM, SERUM 8.9 mg/dL (8.5-10.1); CARBON DIOXIDE 31 mmol/L (21-32); CHLORIDE 105 mmol/L (98-107); CREATININE 0.9 mg/dL (0.6-1.3); GLUCOSE 118 mg/dL (74-106); POTASSIUM 3.6 mmol/L (3.5-5.1); SODIUM SERUM 141 mmol/L (136-145); UREA NITROGEN, BLOOD 15 mg/dL (7-18)
[2018-10-30 19:21] VITALS: BP 155/80
--- NOTE | 2018-10-30 19:45 | NUR ---
Patient discharged to home in stable condition. Written and verbal after care instructions given. Patient verbalizes understanding of instruction.
== END 2018-10-30 19:47 | disposition home or self-care (01) ==
LOC: ER 17:24
DX: S70.12XA Contusion of left thigh, initial encounter (principal); R60.0 Localized edema; I73.9 Peripheral vascular disease, unspecified; I10 Essential (primary) hypertension; E11.9 Type 2 diabetes mellitus without complications; E78.5 Hyperlipidemia, unspecified; N40.0 Benign prostatic hyperplasia without lower urinary tract symptoms; E78.00 Pure hypercholesterolemia, unspecified; I45.10 Unspecified right bundle-branch block; Z87.442 Personal history of urinary calculi; Z60.2 Problems related to living alone; Z79.82 Long term (current) use of aspirin; X58.XXXA Exposure to other specified factors, initial encounter; Y93.89 Activity, other specified; Y92.89 Other specified places as the place of occurrence of the external cause; Y99.8 Other external cause status
CPT/HCPCS: 36415; 71045-TC; 80048-TC; 85025-TC; 85730-TC; 93926-TC

== ENCOUNTER 2019-02-28 10:53 | Emergency (ER) | payer OTHER ==
[~2019-02-28] VITALS: Ht 180.3 cm; Wt 88.5 kg
--- NOTE | 2019-02-28 12:20 | NUR ---
PT ARRIVED FROM HOME FOR FEELING "WEAK, BUT NOTHING'S WRONG WITH ME." PT REPORTS RECENT VISITS TO MILITARY POLICE OFFICER AND PRIMARY CARE PHYSICIAN WITH NORMAL RESULTS. PT AAOX4. BREATHS EVEN AND UNLABORED. O2 SAT 99% ON RA. VS WNL. PT HAS GENERALIZED WEAKNESS BUT IS ABLE TO MOVE ALL EXTREMITIES SLOWLY. LUNGS CTA. ABDOMEN SOFT AND NONDISTENDED. BOWEL SOUNDS PRESENT IN ALL 4 QUADRANTS. PT DENIES ALL PAIN, DIZZINESS, HEADACHE, AND N/V/D. SAFETY PRECAUTIONS IN PLACE. FAMILY AT BEDSIDE. PENDING MD VENTURA AND ORDERS.
--- NOTE | 2019-02-28 12:25 | NUR ---
URINE SPECIMEN COLLECTED AND SENT TO LAB
[2019-02-28 12:34] LABS: BASOPHILS % (AUTO) 0.7 % (0.0-2.0); EOSINOPHILS % (AUTO) 2.7 % (0.0-6.0); HEMATOCRIT 39 % (39-51); HEMOGLOBIN 13.4 g/dL (13.5-17.5); LYMPHOCYTES # (AUTO) 1.3 /CMM (0.8-4.8); LYMPHOCYTES % (AUTO) 22.8 % (20.0-44.0); MEAN CORPUSCULAR HGB CONC 34 g/dl (31.0-36.0); MEAN CORPUSCULAR VOLUME 95 fL (80-96); MONOCYTES # (AUTO) 0.5 /CMM (0.1-1.30); MONOCYTES % (AUTO) 9.2 % (2.0-12.0); NEUTROPHILS # (AUTO) 3.8 /CMM (1.8-8.9); NEUTROPHILS % (AUTO) 64.6 % (43.0-81.0); PLATELET COUNT (AUTO) 227 /CMM (150-450); RED BLOOD CELL COUNT(AUTO) 4.15 MIL/uL (4.5-6.0); WHITE BLOOD COUNT (AUTO) 5.9 K/uL (4.3-11.0)
[2019-02-28 12:41] LABS: CALCIUM, SERUM 9.1 mg/dL (8.5-10.1); CARBON DIOXIDE 24 mmol/L (21-32); CHLORIDE 106 mmol/L (98-107); GLUCOSE 125 mg/dL (74-106); POTASSIUM 3.8 mmol/L (3.5-5.1); SODIUM SERUM 141 mmol/L (136-145); UREA NITROGEN, BLOOD 12 mg/dL (7-18)
[2019-02-28 12:52] LABS: APPEARANCE,URINE Clear (CLEAR); BILIRUBIN,URINE Negative (NEGATIVE); BLOOD, URINE Negative Ery/uL (NEGATIVE); COLOR,URINE Yellow (YELLOW); KETONES,URINE Trace (NEGATIVE); LEUKOCYTE ESTERASE ,URINE Negative (NEGATIVE); NITRITE, URINE Negative (NEGATIVE); PH,URINE 8.5 (5.0-8.0); PROTEIN,URINE Trace mg/dl (NEGATIVE); UGLUCOSE Negative (NEGATIVE); UROBILINOGEN,URINE 0.2 EU/dL (0.2)
[2019-02-28 12:54] LABS: ALANINE AMINOTRANSFERASE 34 U/L (12-78); ALBUMIN 3.6 g/dL (3.4-5.0); ALKALINE PHOSPHATASE 74 U/L (46-116); ASPARTATE AMINOTRANSFERASE 22 U/L (15-37); B-TYPE NATRIURETIC PEPTIDE 162 PG/ML (0-125); BILIRUBIN,DIRECT 0.1 mg/dL (0.0-0.2); BILIRUBIN,TOTAL 0.6 mg/dL (0.2-1.0); TOTAL PROTEIN, SERUM 6.6 g/dL (6.4-8.2)
--- NOTE | 2019-02-28 13:10 | NUR ---
PT REPORTS NO CHANGE IN CONDITION, CONTINUES TO FEEL WEAK BUT DENIES PAIN, SOB, DIZZINESS, HEADACHE, AND N/V/D. SAFETY PRECAUTIONS IN PLACE. PENDING FURTHER ORDERS AND DISPO.
[2019-02-28 13:30] LABS: BACTERIA,URINE None seen /HPF (None Seen); RBC,URINE 0-2 /HPF (0-2); SQUAMOUS EPITHELIAL CELL,UR Rare /HPF (None Seen); WBC,URINE 0-2 /HPF (0-3)
--- NOTE | 2019-02-28 13:38 | NUR ---
PT GAVE INFORMATION FOR PHYSICIAN CLINTON GIL
--- NOTE | 2019-02-28 13:39 | NUR ---
CALLED OFFICE OF DR GIL PCP [phone] OUT OF OFFICE UNTIL 3PM
--- NOTE | 2019-02-28 14:01 | NUR ---
SPOKE TO GOMEZ OF DR GIL OFFICE REGARDING THIS PT, CALLED DR [phone] SPEAKING WITH DR BRINK NOW
--- NOTE | 2019-02-28 14:32 | NUR ---
PT VERBALIZED UNDERSTANDING OF DISCHARGE AND AFTERCARE INSTRUCTIONS. PT IS AAOX4. BREATHS EVEN AND UNLABORED. ALL QUESTIONS ANSWERED. IV DCD. ARM BAND REMOVED. ALL QUESTIONS ANSWERED. BELONGINGS WITH PT. PT IS AMBULATORY WITH STEADY GAIT WITH WALKER.
[2019-02-28 14:33] VITALS: BP 118/71
== END 2019-02-28 14:45 | disposition home or self-care (01) ==
LOC: ER 10:55
DX: R42 Dizziness and giddiness (principal); N40.0 Benign prostatic hyperplasia without lower urinary tract symptoms; E11.9 Type 2 diabetes mellitus without complications; E78.00 Pure hypercholesterolemia, unspecified; Z87.442 Personal history of urinary calculi; Z60.2 Problems related to living alone; Z79.899 Other long term (current) drug therapy; Z79.82 Long term (current) use of aspirin; Z79.84 Long term (current) use of oral hypoglycemic drugs
CPT/HCPCS: 36415; 71045-TC; 80048-TC; 80076-TC; 81000-TC; 83880; 84484-TC; 85025-TC

== ENCOUNTER 2019-03-10 19:24 | Inpatient (IN) | payer OTHER ==
[~2019-03-10] VITALS: Ht 180.3 cm; Wt 91.6 kg
--- NOTE | 2019-03-10 19:30 | NUR ---
PT BIBRA FROM HOME FOR WEAKNESS AND LOW BP; PT AAOX4, PT ON MONITOR, NAD NOTED, PENDING MD VENTURA
[2019-03-10 20:00] LABS: BASOPHILS % (AUTO) 0.2 % (0.0-2.0); EOSINOPHILS % (AUTO) 1.4 % (0.0-6.0); HEMATOCRIT 35 % (39-51); LYMPHOCYTES # (AUTO) 0.1 /CMM (0.8-4.8); LYMPHOCYTES % (AUTO) 2.4 % (20.0-44.0); MEAN CORPUSCULAR HGB CONC 34 g/dl (31.0-36.0); MEAN CORPUSCULAR VOLUME 95 fL (80-96); MONOCYTES # (AUTO) 0.3 /CMM (0.1-1.30); MONOCYTES % (AUTO) 4.7 % (2.0-12.0); NEUTROPHILS # (AUTO) 5.4 /CMM (1.8-8.9); NEUTROPHILS % (AUTO) 91.3 % (43.0-81.0); PLATELET COUNT (AUTO) 166 /CMM (150-450); RED BLOOD CELL COUNT(AUTO) 3.67 MIL/uL (4.5-6.0); WHITE BLOOD COUNT (AUTO) 5.9 K/uL (4.3-11.0)
[2019-03-10] MEDS ORDERED: IV NS 0.9% 1,000 ML BAG IV ONE ×2 (20:00→20:30)
[2019-03-10 20:07] LABS: CALCIUM, SERUM 8.5 mg/dL (8.5-10.1); CARBON DIOXIDE 22 mmol/L (21-32); CHLORIDE 105 mmol/L (98-107); GLUCOSE 132 mg/dL (74-106); POTASSIUM 3.7 mmol/L (3.5-5.1); SODIUM SERUM 140 mmol/L (136-145); UREA NITROGEN, BLOOD 12 mg/dL (7-18)
[2019-03-10 20:14] LABS: ALANINE AMINOTRANSFERASE 81 U/L (12-78); ALBUMIN 3.2 g/dL (3.4-5.0); ALKALINE PHOSPHATASE 98 U/L (46-116); ASPARTATE AMINOTRANSFERASE 93 U/L (15-37); BILIRUBIN,DIRECT 0.1 mg/dL (0.0-0.2); BILIRUBIN,TOTAL 0.5 mg/dL (0.2-1.0); TOTAL PROTEIN, SERUM 6.1 g/dL (6.4-8.2)
[2019-03-10] MEDS ORDERED: LEVOFLOXACIN 750 MG /D5W 150ML 150 ML IV ONE ×2 (20:30→20:32)
[2019-03-10 20:33] LABS: APPEARANCE,URINE Clear (CLEAR); BILIRUBIN,URINE SMALL (NEGATIVE); BLOOD, URINE Negative Ery/uL (NEGATIVE); COLOR,URINE Yellow (YELLOW); KETONES,URINE Trace (NEGATIVE); LEUKOCYTE ESTERASE ,URINE Negative (NEGATIVE); NITRITE, URINE Negative (NEGATIVE); PH,URINE 8.5 (5.0-8.0); PROTEIN,URINE 30 mg/dl (NEGATIVE); UGLUCOSE Negative (NEGATIVE); UROBILINOGEN,URINE 0.2 EU/dL (0.2)
[2019-03-10 20:46] LABS: BACTERIA,URINE Rare /HPF (None Seen); RBC,URINE NONE SEEN /HPF (0-2); SQUAMOUS EPITHELIAL CELL,UR Few /HPF (None Seen); WBC,URINE NONE SEEN /HPF (0-3)
--- NOTE | 2019-03-10 21:35 | NUR ---
SOCIAL ECONOMIST CALLED FOR REPORT ON PT, REPORT HYPOTENSION AND LACTIC ACID LEVEL. WILL CALL BACK FOR AUTH
--- NOTE | 2019-03-10 23:24 | NUR ---
[facility] 118-2
[2019-03-10] MEDS ORDERED: ATOR40TA PO (23:33)
[2019-03-10] MEDS ORDERED: AMLO10TA7 PO (23:33)
[2019-03-10] MEDS ORDERED: TRAZ-214 PO (23:33)
[2019-03-10] MEDS ORDERED: SITA100T PO (23:33)
[2019-03-10] MEDS ORDERED: ALLO300T2 PO (23:33)
--- NOTE | 2019-03-10 23:38 | NUR ---
REPORT GIVEN TO GOMEZ ARVIZU FOR DASH; PT WILL BE TRANSPORTED TO [facility] VIA [facility]S PROT[facility]OL
[2019-03-10 23:50] VITALS: BP 89/42
--- NOTE | 2019-03-10 23:50 | NUR ---
[facility] RN NOTE PATIENT RECEIVED IN [facility] FROM ER. PATIENT ABLE TO ROLL ONTO BED. PATIENT ABLE TO WALK TO BATHROOM WITH ASSISTANCE. PATIENT INSISTS ON STANDING WHEN USING THE URINAL, PATIENT EXTREMITY STRENGTH ABLE TO TOLERATE THAT ACTIVITY. PATIENT A/O X 3. NO S/S OF RESP/CARDIAC DISTRESS. PATIENT HAS 18 G IN LFA PATENT INTACT NO S/S OF INFILTRATIONS. PATIENT HR 84 ON THE MONITOR SR WITH BBB. PATIENT DENIES PAIN OR DISCOMFORT AT THIS TIME. PATIENT NOTED TO HAVE REDNESS IN THE LEFT INGUINAL FOLD AND PERIANAL AREA. PATIENT ALSO C/O A POSSIBLE DIABETIC ULCER ON THE LEFT BIG TOE. PATIENT REFUSED A BED BATH AT THIS TIME, AGGREED TO PERINEAL CARE. PATIENT ORIENTED TO UNIT, POC/ GOALS DISCUSSED WITH PATIENT. PATIENT VERBALIZES UNDERSTANDING. BED IN LOWEST LOCKED POSITION, SAFETY PRECAUTIONS IN PLACE SIDE RAILS UP X 2. RN WILL CONTINUE TO MONITOR AND PROVIDE CARE ORDERED.
[2019-03-11] VITALS: BP 84/42
[2019-03-11] MEDS ORDERED: IV NS 0.9% 1,000 ML IV SCH
[2019-03-11] MEDS ORDERED: ACETAMINOPHEN 325 MG TABLET PO PRN
[2019-03-11] MEDS ORDERED: ONDANSETRON HCL/PF 4 MG/2 ML VIAL IVP PRN
[2019-03-11] MEDS ORDERED: PIPERACILLIN /TAZOBACTAM 3.375 G VIAL IV ONE ×2 (00:37→05:43)
[2019-03-11] MEDS ORDERED: VANCOMYCIN 1 GM VIAL ONE (00:37)
[2019-03-11] MEDS ORDERED: VANCOMYCIN 1 GM in IV NS 0.9% 250 ML IV SCH (01:00)
[2019-03-11] MEDS: PIPERACILLIN /TAZOBACTAM 3.375 G in IV D5W 50 ML IV SCH ×2 (01:01→05:48)
[2019-03-11] MEDS ORDERED: DEXTROSE 50%-WATER 50 ML DISP.SYRIN IV PRN (02:00)
[2019-03-11 04:00] VITALS: BP 122/59
[2019-03-11 06:32] LABS: BASOPHILS % (AUTO) 0.3 % (0.0-2.0); EOSINOPHILS % (AUTO) 1.6 % (0.0-6.0); HEMATOCRIT 34 % (39-51); HEMOGLOBIN 11.7 g/dL (13.5-17.5); LYMPHOCYTES # (AUTO) 0.2 /CMM (0.8-4.8); LYMPHOCYTES % (AUTO) 3.9 % (20.0-44.0); MEAN CORPUSCULAR HGB CONC 35 g/dl (31.0-36.0); MEAN CORPUSCULAR VOLUME 95 fL (80-96); MONOCYTES # (AUTO) 0.3 /CMM (0.1-1.30); MONOCYTES % (AUTO) 5.7 % (2.0-12.0); NEUTROPHILS # (AUTO) 4.5 /CMM (1.8-8.9); NEUTROPHILS % (AUTO) 88.5 % (43.0-81.0); PLATELET COUNT (AUTO) 167 /CMM (150-450); RED BLOOD CELL COUNT(AUTO) 3.55 MIL/uL (4.5-6.0)
[2019-03-11 06:37] LABS: ALANINE AMINOTRANSFERASE 123 U/L (12-78); ALKALINE PHOSPHATASE 105 U/L (46-116); ASPARTATE AMINOTRANSFERASE 135 U/L (15-37); BILIRUBIN,DIRECT 0.1 mg/dL (0.0-0.2); BILIRUBIN,TOTAL 0.5 mg/dL (0.2-1.0); CALCIUM, SERUM 8.3 mg/dL (8.5-10.1); CARBON DIOXIDE 26 mmol/L (21-32); CHLORIDE 109 mmol/L (98-107); CREATININE 1.1 mg/dL (0.6-1.3); GLUCOSE 106 mg/dL (74-106); MAGNESIUM 2.2 mg/dL (1.8-2.4); PHOSPHORUS 2.2 mg/dL (2.5-4.9); POTASSIUM 3.7 mmol/L (3.5-5.1); SODIUM SERUM 142 mmol/L (136-145); TOTAL PROTEIN, SERUM 5.9 g/dL (6.4-8.2); UREA NITROGEN, BLOOD 11 mg/dL (7-18)
[2019-03-11 06:50] LABS: IRON, SERUM 14 ug/dl (50-175); TOTAL IRON BINDING CAPACITY 208 ug/dl (250-450)
[2019-03-11 06:51] LABS: CHOLESTEROL 91 mg/dL (<200); FERRITIN 133 ng/mL (8-388); HDL CHOLESTEROL 42 mg/dL (40-60); LDL 41 mg/dL (0-99); THYROID STIMULATING HORMONE 1.721 uIU/mL (0.358-3.74); TRIGLYCERIDES 42 mg/dL (30-150)
[2019-03-11] MEDS ORDERED: FEE PK DOSING 1 MIN EA MC ONE (07:26)
[2019-03-11 08:00] VITALS: BP 112/64
[2019-03-11] MEDS: BLOOD SUGAR DIAGNOSTIC 1 EACH STRIP IN SCH ×4 (08:14→21:35)
[2019-03-11] MEDS: FINASTERIDE (5 MG) 5 MG TABLET PO SCH (08:25)
[2019-03-11] MEDS: TAMSULOSIN 0.4 MG CAP.SR.24H PO SCH (08:25)
[2019-03-11] MEDS: ASPIRIN EC 81 MG TABLET.DR PO SCH (08:25)
[2019-03-11] MEDS: ALLOPURINOL 100 MG TABLET PO SCH (08:26)
[2019-03-11] MEDS: PANTOPRAZOLE 40 MG TABLET.DR PO SCH (08:49)
[2019-03-11] MEDS: LISINOPRIL (10MG) 10 MG TABLET PO SCH (09:00)
[2019-03-11] MEDS: AMLODIPINE BESYLATE 10 MG TABLET PO SCH (09:00)
[2019-03-11] MEDS ORDERED: Z GUARD REMEDY 2 OZ OINT TP PRN (09:00)
[2019-03-11] MEDS ORDERED: PANTOPRAZOLE 40 MG VIAL IV SCH ×2 (09:00)
[2019-03-11] MEDS ORDERED: K PHOS NEUTRAL 250 MG TABLET PO ONE (13:00)
[2019-03-11] MEDS: PIPERACILLIN /TAZOBACTAM 3.375 G in IV D5W 100 ML IV SCH ×2 (13:31→21:35)
[2019-03-11] MEDS: IV NS 0.9% 1,000 ML IV PRN ×2 (13:49→17:38)
--- NOTE | 2019-03-11 14:33 | NUR ---
RN NOTE PER PT'S SON, COBY, PT WAS TAKING SULFAMETHOXAZOLE ANTIBIOTIC AT HOME STARTING Sunday. THIS REPORTED TO HOSPITALIST VALERIE, NO NEW ORDERS, PT ALREADY ON VANCOMYCIN AND ZOSYN.
[2019-03-11 16:00] VITALS: BP 116/67
[2019-03-11] MEDS: FERROUS SULFATE (325 MG) 325 MG/TAB TABLET PO SCH (16:29)
[2019-03-11] MEDS: VANCOMYCIN 1.25 GM in IV D5W 500 ML IV SCH (18:34)
--- NOTE | 2019-03-11 20:03 | NUR ---
MS RN NOTES RECEIVED PATIENT AWAKE IN BED WITH NO DISTRESS NOTED. CALL LIGHT WITHIN REACH. SITTER AT BEDSIDE. NO C/O PAIN OR DISCOMFORT. PERIPHERAL LINE INTACT AND PATENT. PATIENT CALM AND COMPLIANT WITH CARE. ROOM FREE OF CALL LIGHT AND BELONGINGS KEPT NEAR BEDSIDE. WILL CONTINUE TO MONITOR.
[2019-03-11] MEDS: ATORVASTATIN 40 MG TABLET PO SCH (21:35)
[2019-03-11] MEDS: INSULIN REGULAR, HUMAN 100 UNIT/ML 3 ML VIAL SQ PRN (21:52)
[2019-03-12] VITALS: BP 121/63
[2019-03-12] MEDS: PIPERACILLIN /TAZOBACTAM 3.375 G in IV D5W 100 ML IV SCH ×3 (05:10→21:59)
--- NOTE | 2019-03-12 06:15 | NUR ---
MS RN NOTES PATIENT AWAKE IN BED WITH NO DISTRESS NOTED. CALL LIGHT WITHIN REACH. NO C/O PAIN OR DISCOMFORT. ALL DUE MEDS GIVEN ORDERED WITH NO ASE NOTED. PERIPHERAL LINES INTACT AND PATENT. ROOM FREE OF CALL LIGHT AND BELONGINGS KEPT NEAR BEDSIDE. WILL ENDORSE TO ONCOMING SHIFT.
[2019-03-12] MEDS: BLOOD SUGAR DIAGNOSTIC 1 EACH STRIP IN SCH ×4 (06:45→22:02)
[2019-03-12 06:55] LABS: BASOPHILS % (AUTO) 0.4 % (0.0-2.0); EOSINOPHILS % (AUTO) 5.2 % (0.0-6.0); HEMATOCRIT 34 % (39-51); HEMOGLOBIN 11.6 g/dL (13.5-17.5); LYMPHOCYTES # (AUTO) 0.5 /CMM (0.8-4.8); LYMPHOCYTES % (AUTO) 12.7 % (20.0-44.0); MEAN CORPUSCULAR HGB CONC 34 g/dl (31.0-36.0); MEAN CORPUSCULAR VOLUME 95 fL (80-96); MONOCYTES # (AUTO) 0.4 /CMM (0.1-1.30); MONOCYTES % (AUTO) 11.1 % (2.0-12.0); NEUTROPHILS # (AUTO) 2.7 /CMM (1.8-8.9); NEUTROPHILS % (AUTO) 70.6 % (43.0-81.0); PLATELET COUNT (AUTO) 167 /CMM (150-450); WHITE BLOOD COUNT (AUTO) 3.9 K/uL (4.3-11.0)
[2019-03-12 06:57] LABS: CALCIUM, SERUM 7.7 mg/dL (8.5-10.1); CARBON DIOXIDE 23 mmol/L (21-32); CHLORIDE 109 mmol/L (98-107); CREATININE 0.9 mg/dL (0.6-1.3); GLUCOSE 95 mg/dL (74-106); POTASSIUM 3.3 mmol/L (3.5-5.1); SODIUM SERUM 144 mmol/L (136-145); UREA NITROGEN, BLOOD 9 mg/dL (7-18)
--- NOTE | 2019-03-12 07:10 | NUR ---
MS RN OPENING NOTES RECEIVED PT LYING ON BED,ALERT/ORIENTED X3.CAN AMBULATE AND SITE AT BEDSIDE,TOLERATING WELL.ON ROOM AIR,TOLERATING WELL.IV LINE IS ON LEFT UA G22 WITH IV ANTIBIOTICS IS RUNNING,SITE IS CLEAN,DRY AND INTACT.NO INFILTRATION NOTED.BED IS IN LOW POSITION AND LOCKED,CALL LIGHT IS WITHIN REACH.WILL CONTINUE TO MONITOR THE PT CLOSELY.
[2019-03-12] MEDS: PANTOPRAZOLE 40 MG TABLET.DR PO SCH (07:50)
[2019-03-12 08:00] VITALS: BP 138/91
[2019-03-12] MEDS: TAMSULOSIN 0.4 MG CAP.SR.24H PO SCH (08:30)
[2019-03-12] MEDS: ASPIRIN EC 81 MG TABLET.DR PO SCH (08:30)
[2019-03-12] MEDS: ALLOPURINOL 100 MG TABLET PO SCH (08:30)
[2019-03-12] MEDS: AMLODIPINE BESYLATE 10 MG TABLET PO SCH (08:30)
[2019-03-12] MEDS: FERROUS SULFATE (325 MG) 325 MG/TAB TABLET PO SCH ×2 (08:30→16:33)
[2019-03-12] MEDS: FINASTERIDE (5 MG) 5 MG TABLET PO SCH (08:30)
[2019-03-12] MEDS: LISINOPRIL (10MG) 10 MG TABLET PO SCH (08:30)
[2019-03-12] MEDS: NEOMY SULF/BACITRAC ZN/POLY 15 GM TUBE TP SCH (09:27)
[2019-03-12] MEDS ORDERED: POTASSIUM CHLORIDE 20 MEQ TAB.PRT.SR PO SCH (10:30)
[2019-03-12] MEDS: VANCOMYCIN 1.25 GM in IV D5W 500 ML IV SCH (11:30)
[2019-03-12] MEDS: INSULIN REGULAR, HUMAN 100 UNIT/ML 3 ML VIAL SQ PRN ×3 (11:37→22:02)
[2019-03-12] MEDS: IV NS 0.9% 1,000 ML IV PRN (11:37)
[2019-03-12 16:00] VITALS: BP 135/65
[2019-03-12] MEDS: LACTOBACILLUS RHAMNOSUS GG 1 EACH CAP.SPRINK PO SCH (16:34)
--- NOTE | 2019-03-12 18:36 | NUR ---
MS RN CLOSING NOTES PT IS SITTING ON BED.CAN AMBULATE WELL WITH MINIMAL ASSISTANCE,TOLERATING WELL.ON ROOM AIR,TOLERATING WELL.IV LINE IS ON LEFT UA G22 AND ON RIGHT HAND G22 WITH IV ANTIBIOTICS IS RUNNING,SITE IS CLEAN,DRY AND INTACT.NO INFILTRATION NOTED.RESPIRATION IS EVEN AND NONLABORED.ENDORSED TO ORTHOPEDIC RN RN FOR DASH.
[2019-03-12 20:00] VITALS: BP 137/63
--- NOTE | 2019-03-12 20:17 | NUR ---
INVENTORY TRANSCRIBER OPENING NOTES RECEIVED REPORT FROM JOSSUE RN. PATIENT A/A/O X3, ABLE TO MAKE NEEDS KNOWN. BREATHING EVEN & UNLABORED, TOLERATING ROOM AIR. DENIES ANY SOB OR DIFFICULTY BREATHING. RADIAL PULSES PRESENT. LEFT UPPER ARM IV #22 & RIGHT HAND IV #22 INTACT & PATENT W/ DRESSING CDI & IVF NS INFUSING WELL @ 125 ML/HR. DENIES ANY PAIN OR DISCOMFORT @ THIS TIME. SAFETY MEASURES IN PLACE W/ SIDE RAILS UP & BED ALARM ON. INSTRUCTED TO USE CALL LIGHT FOR ASSISTANCE. WILL CONTINUE TO MONITOR.
[2019-03-12] MEDS ORDERED: POLYETHYLENE GLYCOL 3350 17 GM POWD.PACK PO PRN (21:30)
[2019-03-12] MEDS ORDERED: MAGNESIUM CITRATE 296 ML BOTTLE PO PRN (21:30)
[2019-03-12] MEDS ORDERED: MAGNESIUM HYDROXIDE 30 ML UDC PO PRN (21:30)
[2019-03-12] MEDS: ATORVASTATIN 40 MG TABLET PO SCH (21:59)
[2019-03-13 04:00] VITALS: BP_SYST 136; BP_SYST 137; BP_DIAS 64
[2019-03-13] MEDS: VANCOMYCIN 1.25 GM in IV D5W 500 ML IV SCH (05:16)
[2019-03-13] MEDS: PIPERACILLIN /TAZOBACTAM 3.375 G in IV D5W 100 ML IV SCH ×2 (05:16→13:00)
--- NOTE | 2019-03-13 06:39 | NUR ---
RN NOTES BOTH PATIENT'S IV LINES INFILTRATED DURING SHIFT AND ONLY ABLE TO REINSERT ONE IV LINE D/T PATIENT IS A HARD STICK & DID NOT WANT TO BE STUCK OVER AND OVER AGAIN. IV ZOSYN ADMINISTERED LATE D/T PATIENT ONLY HAS ONE IV LINE. VANCO 1GM ADMINISTERED FIRST OVER 2 HOURS AND ZOSYN ADMINISTERED RIGHT AFTER. CHARGE NURSE AWARE.
[2019-03-13 07:10] LABS: BASOPHILS % (AUTO) 0.5 % (0.0-2.0); EOSINOPHILS % (AUTO) 6.4 % (0.0-6.0); HEMATOCRIT 36 % (39-51); HEMOGLOBIN 12.4 g/dL (13.5-17.5); LYMPHOCYTES # (AUTO) 0.8 /CMM (0.8-4.8); LYMPHOCYTES % (AUTO) 18.6 % (20.0-44.0); MEAN CORPUSCULAR HGB CONC 34 g/dl (31.0-36.0); MEAN CORPUSCULAR VOLUME 95 fL (80-96); MONOCYTES # (AUTO) 0.7 /CMM (0.1-1.30); MONOCYTES % (AUTO) 14.9 % (2.0-12.0); NEUTROPHILS # (AUTO) 2.7 /CMM (1.8-8.9); NEUTROPHILS % (AUTO) 59.6 % (43.0-81.0); PLATELET COUNT (AUTO) 181 /CMM (150-450); RED BLOOD CELL COUNT(AUTO) 3.79 MIL/uL (4.5-6.0); WHITE BLOOD COUNT (AUTO) 4.5 K/uL (4.3-11.0)
[2019-03-13 07:12] LABS: CALCIUM, SERUM 8.4 mg/dL (8.5-10.1); CARBON DIOXIDE 26 mmol/L (21-32); CHLORIDE 107 mmol/L (98-107); CREATININE 0.9 mg/dL (0.6-1.3); GLUCOSE 136 mg/dL (74-106); POTASSIUM 3.3 mmol/L (3.5-5.1); SODIUM SERUM 143 mmol/L (136-145); UREA NITROGEN, BLOOD 9 mg/dL (7-18)
[2019-03-13] MEDS ORDERED: FERR325T91 PO (07:24)
[2019-03-13] MEDS ORDERED: PIPE3.379 IV (07:24)
[2019-03-13] MEDS ORDERED: VANC1FRO2 IV (07:24)
[2019-03-13 08:00] VITALS: BP 109/65
[2019-03-13] MEDS: BLOOD SUGAR DIAGNOSTIC 1 EACH STRIP IN SCH ×2 (08:14→12:00)
[2019-03-13] MEDS: PANTOPRAZOLE 40 MG TABLET.DR PO SCH (08:14)
[2019-03-13] MEDS: ASPIRIN EC 81 MG TABLET.DR PO SCH (09:03)
[2019-03-13] MEDS: FINASTERIDE (5 MG) 5 MG TABLET PO SCH (09:03)
[2019-03-13] MEDS: ALLOPURINOL 100 MG TABLET PO SCH (09:04)
[2019-03-13] MEDS: TAMSULOSIN 0.4 MG CAP.SR.24H PO SCH (09:04)
[2019-03-13] MEDS: FERROUS SULFATE (325 MG) 325 MG/TAB TABLET PO SCH ×2 (09:04→17:46)
[2019-03-13] MEDS: LISINOPRIL (10MG) 10 MG TABLET PO SCH (09:05)
[2019-03-13] MEDS: AMLODIPINE BESYLATE 10 MG TABLET PO SCH (09:05)
[2019-03-13] MEDS: LACTOBACILLUS RHAMNOSUS GG 1 EACH CAP.SPRINK PO SCH ×2 (09:06→17:46)
[2019-03-13] MEDS: NEOMY SULF/BACITRAC ZN/POLY 15 GM TUBE TP SCH (09:07)
[2019-03-13] MEDS ORDERED: POTASSIUM CHLORIDE 20 MEQ TAB.PRT.SR PO ONE (11:00)
[2019-03-13 16:00] VITALS: BP 125/78
--- NOTE | 2019-03-13 18:38 | NUR ---
Pt discharge to SNF facilities for follow on IV antibiotic about diagnostic of septic shoc,pt voiced understanding of all discharge instructions.All paper sent with pt to the facility.
== END 2019-03-13 18:15 | DRG 871 ==
LOC: ER 19:26 → TELE-TD 23:29 → MEDSG1 03-11 11:53
PROVIDERS: ADMIT Registered Nurse; ATTEND Registered Nurse
DX: A41.9 Sepsis, unspecified organism (principal); R65.21 Severe sepsis with septic shock; J15.9 Unspecified bacterial pneumonia; E87.2 Acidosis; E44.0 Moderate protein-calorie malnutrition; E78.5 Hyperlipidemia, unspecified; E86.0 Dehydration; E11.42 Type 2 diabetes mellitus with diabetic polyneuropathy; E83.39 Other disorders of phosphorus metabolism; L03.031 Cellulitis of right toe; D50.9 Iron deficiency anemia, unspecified; Z98.42 Cataract extraction status, left eye; Z87.442 Personal history of urinary calculi; Z79.82 Long term (current) use of aspirin; N40.0 Benign prostatic hyperplasia without lower urinary tract symptoms; I10 Essential (primary) hypertension; E11.621 Type 2 diabetes mellitus with foot ulcer; E11.65 Type 2 diabetes mellitus with hyperglycemia; H54.8 Legal blindness, as defined in USA; K59.00 Constipation, unspecified; Z79.84 Long term (current) use of oral hypoglycemic drugs; Z79.899 Other long term (current) drug therapy; R26.9 Unspecified abnormalities of gait and mobility; R74.0 Nonspecific elevation of levels of transaminase and lactic acid dehydrogenase [LDH]; I70.0 Atherosclerosis of aorta; S90.411A Abrasion, right great toe, initial encounter; Y92.003 Bedroom of unspecified non-institutional (private) residence as the place of occurrence of the external cause; W06.XXXA Fall from bed, initial encounter; L97.519 Non-pressure chronic ulcer of other part of right foot with unspecified severity; F10.21 Alcohol dependence, in remission
CPT/HCPCS: 36415; 70450-TC; 71045-TC; 73630-TC; 76700-TC; 80048-TC; 80053-TC; 80061-TC; 80074; 80076-TC; 81000-TC; 82247-TC; 82248-TC; 82728-TC; 82962-TC; 83540-TC; 83605-TC; 83735-TC; 84100-TC; 84443-TC; 84484-TC; 85025-TC; 85652-TC; 85730-TC; 87040-TC; 87081-TC; 87086-TC; 87400; 93307-TC; 97116-TC; 97530-TC; 97535-TC; A4349; G0378; J1815; J1956; J2543; J3370; J7030; J7050; J7060

== ENCOUNTER 2019-03-30 13:22 | Emergency (ER) | payer OTHER ==
[~2019-03-30] VITALS: Ht 180.3 cm; Wt 87.5 kg
[~2019-03-30 13:22] MED LIST changes: +ALLO300T2 PO; +AMLO10TA7 PO; +ATOR40TA PO; -CIPR-262 PO; +FERR325T91 PO; -NEOMYCIN OP; +PIPE3.379 IV; +SITA100T PO; +TRAZ-214 PO; +VANC1FRO2 IV; -VANC1PLA11 IV
--- NOTE | 2019-03-30 13:35 | NUR ---
PT BIB FAMILY FOR DIZZINESS; PT AAOX4, -SOB, NAD NOTED, VSS, PENDING MD VENTURA
[2019-03-30 14:34] LABS: BASOPHILS % (AUTO) 0.8 % (0.0-2.0); EOSINOPHILS % (AUTO) 0.4 % (0.0-6.0); HEMATOCRIT 39 % (39-51); HEMOGLOBIN 13.3 g/dL (13.5-17.5); LYMPHOCYTES # (AUTO) 1.4 /CMM (0.8-4.8); LYMPHOCYTES % (AUTO) 27.7 % (20.0-44.0); MEAN CORPUSCULAR HGB CONC 34 g/dl (31.0-36.0); MEAN CORPUSCULAR VOLUME 95 fL (80-96); MONOCYTES # (AUTO) 0.6 /CMM (0.1-1.30); MONOCYTES % (AUTO) 12.7 % (2.0-12.0); NEUTROPHILS % (AUTO) 58.4 % (43.0-81.0); PLATELET COUNT (AUTO) 270 /CMM (150-450); RED BLOOD CELL COUNT(AUTO) 4.15 MIL/uL (4.5-6.0); WHITE BLOOD COUNT (AUTO) 5.1 K/uL (4.3-11.0)
[2019-03-30 14:42] LABS: CALCIUM, SERUM 9.5 mg/dL (8.5-10.1); CARBON DIOXIDE 23 mmol/L (21-32); CHLORIDE 103 mmol/L (98-107); CREATININE 1.3 mg/dL (0.6-1.3); GLUCOSE 169 mg/dL (74-106); POTASSIUM 3.4 mmol/L (3.5-5.1); SODIUM SERUM 140 mmol/L (136-145); UREA NITROGEN, BLOOD 18 mg/dL (7-18)
[2019-03-30 14:57] LABS: ALANINE AMINOTRANSFERASE 32 U/L (12-78); ALBUMIN 3.7 g/dL (3.4-5.0); ALKALINE PHOSPHATASE 92 U/L (46-116); ASPARTATE AMINOTRANSFERASE 25 U/L (15-37); BILIRUBIN,DIRECT 0.1 mg/dL (0.0-0.2); BILIRUBIN,TOTAL 0.6 mg/dL (0.2-1.0); TOTAL PROTEIN, SERUM 6.9 g/dL (6.4-8.2)
--- NOTE | 2019-03-30 15:24 | NUR ---
CALLED EDUARD TO HAVE IMAGE READ
--- NOTE | 2019-03-30 16:05 | NUR ---
CALLED AND LEFT A MESSAGE FOR DIEGO, THE COMM[facility]ITY [facility] CONSULTANT.
--- NOTE | 2019-03-30 16:37 | NUR ---
SPOKE TO STRIKE PLATE ATTACHER, DIEGO, AND SHE IS WORKING ON TRANSFERRING THE PT.
--- NOTE | 2019-03-30 17:09 | NUR ---
SPOKE TO DIEGO AND WAS INFROMED THAT SHE WILL SET UP TRANSPORT AFTER [facility] GIVES HER A BED.
--- NOTE | 2019-03-30 17:22 | NUR ---
SPOKE TO DIEGO BRIDGE INSPECTOR AND TOLD HER THAT PT WILL BE D/C AND TO [facility].
--- NOTE | 2019-03-30 18:28 | NUR ---
Patient discharged to home in stable condition. Written and verbal after care instructions given. Patient verbalizes understanding of instruction. IV removed. Catheter intact and site benign. Pressure and 4x4 applied to site. No bleeding noted.
[2019-03-30 18:52] VITALS: BP 110/60
== END 2019-03-30 18:53 | disposition home or self-care (01) ==
LOC: ER 13:22
DX: R42 Dizziness and giddiness (principal); I10 Essential (primary) hypertension; N40.0 Benign prostatic hyperplasia without lower urinary tract symptoms; E78.00 Pure hypercholesterolemia, unspecified; E11.621 Type 2 diabetes mellitus with foot ulcer; Z87.442 Personal history of urinary calculi; Z60.2 Problems related to living alone; Z79.899 Other long term (current) drug therapy; Z79.84 Long term (current) use of oral hypoglycemic drugs; Z79.82 Long term (current) use of aspirin
CPT/HCPCS: 36415; 71045-TC; 80048-TC; 80076-TC; 84484-TC; 85025-TC

== ENCOUNTER 2019-04-01 10:54 | Emergency (ER) | payer OTHER ==
[~2019-04-01] VITALS: Ht 182.9 cm; Wt 90.7 kg
--- NOTE | 2019-04-01 11:00 | NUR ---
GOVIND ZAMORA 80 From "not feeling good/weak felt giddy." Patient aox4, breathing even and unlabored, no sob noted. Changed into gown. Attached to the monitor.
[2019-04-01] MEDS ORDERED: SITA100T PO (11:22)
[2019-04-01] MEDS ORDERED: PANT40TA4 PO (11:22)
[2019-04-01] MEDS ORDERED: ATOR40TA PO (11:22)
[2019-04-01] MEDS ORDERED: IRBE1TAB41 PO (11:22)
[2019-04-01] MEDS ORDERED: IV NS 0.9% 1,000 ML BAG IV ONE ×2 (12:00→13:30)
--- NOTE | 2019-04-01 12:00 | NUR ---
PATIENT NAD, VSS. WILL MONITOR.
[2019-04-01 12:19] LABS: BASOPHILS # (AUTO) 0.1 /CMM (0.0-0.2); BASOPHILS % (AUTO) 0.7 % (0.0-2.0); EOSINOPHILS % (AUTO) 0.6 % (0.0-6.0); HEMATOCRIT 38 % (39-51); HEMOGLOBIN 12.9 g/dL (13.5-17.5); LYMPHOCYTES # (AUTO) 1.3 /CMM (0.8-4.8); LYMPHOCYTES % (AUTO) 15.7 % (20.0-44.0); MEAN CORPUSCULAR HGB CONC 34 g/dl (31.0-36.0); MEAN CORPUSCULAR VOLUME 96 fL (80-96); MONOCYTES # (AUTO) 0.7 /CMM (0.1-1.30); MONOCYTES % (AUTO) 8.9 % (2.0-12.0); NEUTROPHILS # (AUTO) 6.1 /CMM (1.8-8.9); NEUTROPHILS % (AUTO) 74.1 % (43.0-81.0); PLATELET COUNT (AUTO) 238 /CMM (150-450); WHITE BLOOD COUNT (AUTO) 8.3 K/uL (4.3-11.0)
[2019-04-01 12:28] LABS: CARBON DIOXIDE 27 mmol/L (21-32); CHLORIDE 105 mmol/L (98-107); CREATININE 1.4 mg/dL (0.6-1.3); GLUCOSE 98 mg/dL (74-106); POTASSIUM 3.3 mmol/L (3.5-5.1); SODIUM SERUM 143 mmol/L (136-145); UREA NITROGEN, BLOOD 17 mg/dL (7-18)
[2019-04-01 12:39] LABS: ALANINE AMINOTRANSFERASE 31 U/L (12-78); ALBUMIN 3.4 g/dL (3.4-5.0); ALKALINE PHOSPHATASE 87 U/L (46-116); ASPARTATE AMINOTRANSFERASE 24 U/L (15-37); BILIRUBIN,DIRECT 0.1 mg/dL (0.0-0.2); BILIRUBIN,TOTAL 0.6 mg/dL (0.2-1.0); TOTAL PROTEIN, SERUM 6.6 g/dL (6.4-8.2)
[2019-04-01 13:38] LABS: APPEARANCE,URINE Clear (CLEAR); BILIRUBIN,URINE Negative (NEGATIVE); BLOOD, URINE Negative Ery/uL (NEGATIVE); COLOR,URINE Yellow (YELLOW); KETONES,URINE Negative (NEGATIVE); LEUKOCYTE ESTERASE ,URINE Negative (NEGATIVE); NITRITE, URINE Negative (NEGATIVE); PH,URINE 8.5 (5.0-8.0); PROTEIN,URINE Negative (NEGATIVE); UGLUCOSE Negative (NEGATIVE); UROBILINOGEN,URINE 0.2 EU/dL (0.2)
[2019-04-01] MEDS ORDERED: POTASSIUM CHLORIDE 20 MEQ TAB.PRT.SR PO ONE ×2 (14:00→14:06)
--- NOTE | 2019-04-01 14:23 | NUR ---
PIV removed, Patient discharged to home in stable condition. Written and verbal after care instructions given. Patient verbalizes understanding of instruction.
[2019-04-01 14:25] VITALS: BP 114/73
== END 2019-04-01 14:29 | disposition home or self-care (01) ==
LOC: ER 10:54
DX: R42 Dizziness and giddiness (principal); R51 Headache; I10 Essential (primary) hypertension; E11.9 Type 2 diabetes mellitus without complications; N40.0 Benign prostatic hyperplasia without lower urinary tract symptoms; E78.00 Pure hypercholesterolemia, unspecified; Z87.442 Personal history of urinary calculi; Z79.82 Long term (current) use of aspirin
CPT/HCPCS: 36415; 70450; 71045; 80048; 80076; 81001; 82962; 84484; 85025; 85730; 93005; 96360; 96361; 99284; J7030; 81000-TC

== ENCOUNTER 2019-05-06 07:43 | Emergency (ER) | payer OTHER ==
[~2019-05-06] VITALS: Ht 180.3 cm; Wt 90.7 kg
[~2019-05-06 07:43] MED LIST changes: -ASPI-605 PO; -FERR325T91 PO; +IRBE1TAB41 PO; -LISI10TA5 PO; +PANT40TA4 PO; -PIPE3.379 IV; -TRAZ-214 PO; -VANC1FRO2 IV
[2019-05-06 08:01] VITALS: BP 121/70
== END 2019-05-06 08:23 | disposition home or self-care (01) ==
LOC: ER 07:45
DX: E11.621 Type 2 diabetes mellitus with foot ulcer (principal); I10 Essential (primary) hypertension; N40.0 Benign prostatic hyperplasia without lower urinary tract symptoms; E78.00 Pure hypercholesterolemia, unspecified; Z87.442 Personal history of urinary calculi; Z79.84 Long term (current) use of oral hypoglycemic drugs; Z79.899 Other long term (current) drug therapy

== ENCOUNTER 2019-05-16 11:12 | Emergency (ER) | payer OTHER ==
[~2019-05-16] VITALS: Ht 180.3 cm; Wt 89.4 kg
--- NOTE | 2019-05-16 11:22 | NUR ---
PT BIB SELF C/O DIZZNESS, PT IS AAOX4, NOT IN RESPIRATORY DISTRESS,HOOKED TO MONITOR, KEPT RESTED AND COMFORTABLE, WILL CONTINUE TO MONITOR.
--- NOTE | 2019-05-16 11:27 | NUR ---
AT BEDSIDE FOR EVAL.
--- NOTE | 2019-05-16 11:49 | NUR ---
IV LINE ESTABLISHED, BLOOD DRAWNED AND SENT TO LAB.
[2019-05-16 11:52] LABS: BASOPHILS % (AUTO) 0.7 % (0.0-2.0); EOSINOPHILS % (AUTO) 4.1 % (0.0-6.0); HEMATOCRIT 38 % (39-51); HEMOGLOBIN 12.7 g/dL (13.5-17.5); LYMPHOCYTES # (AUTO) 1.3 /CMM (0.8-4.8); LYMPHOCYTES % (AUTO) 21.9 % (20.0-44.0); MEAN CORPUSCULAR HGB CONC 33 g/dl (31.0-36.0); MEAN CORPUSCULAR VOLUME 96 fL (80-96); MONOCYTES # (AUTO) 0.5 /CMM (0.1-1.30); MONOCYTES % (AUTO) 7.7 % (2.0-12.0); NEUTROPHILS # (AUTO) 3.9 /CMM (1.8-8.9); NEUTROPHILS % (AUTO) 65.6 % (43.0-81.0); PLATELET COUNT (AUTO) 193 /CMM (150-450); RED BLOOD CELL COUNT(AUTO) 3.95 MIL/uL (4.5-6.0)
[2019-05-16 11:59] LABS: CALCIUM, SERUM 9.5 mg/dL (8.5-10.1); CARBON DIOXIDE 25 mmol/L (21-32); CHLORIDE 107 mmol/L (98-107); CREATININE 1.2 mg/dL (0.6-1.3); GLUCOSE 111 mg/dL (74-106); POTASSIUM 4.1 mmol/L (3.5-5.1); SODIUM SERUM 142 mmol/L (136-145); UREA NITROGEN, BLOOD 13 mg/dL (7-18)
[2019-05-16] MEDS ORDERED: IV NS 0.9% 500 ML BAG IV ONE (12:00)
[2019-05-16 12:16] LABS: ALANINE AMINOTRANSFERASE 41 U/L (12-78); ALBUMIN 3.7 g/dL (3.4-5.0); ALKALINE PHOSPHATASE 94 U/L (46-116); ASPARTATE AMINOTRANSFERASE 26 U/L (15-37); BILIRUBIN,DIRECT 0.1 mg/dL (0.0-0.2); BILIRUBIN,TOTAL 0.4 mg/dL (0.2-1.0); TOTAL PROTEIN, SERUM 6.7 g/dL (6.4-8.2)
[2019-05-16 12:36] VITALS: BP 124/87
== END 2019-05-16 12:53 | disposition home or self-care (01) ==
LOC: ER 11:13
DX: R42 Dizziness and giddiness (principal); I10 Essential (primary) hypertension; N40.0 Benign prostatic hyperplasia without lower urinary tract symptoms; E11.621 Type 2 diabetes mellitus with foot ulcer; Z87.442 Personal history of urinary calculi; Z60.2 Problems related to living alone; Z79.84 Long term (current) use of oral hypoglycemic drugs; Z79.899 Other long term (current) drug therapy
CPT/HCPCS: 36415; 80048; 80076; 84484; 85025; 93005; 96360; 99284; J7040

== ENCOUNTER 2019-11-12 15:41 | Emergency (ER) | payer OTHER ==
[~2019-11-12] VITALS: Ht 180.3 cm; Wt 90.3 kg
[2019-11-12] MEDS ORDERED: IV NS 0.9% 1,000 ML BAG IV ONE (16:00)
--- NOTE | 2019-11-12 16:16 | NUR ---
amanda, c/o unsteady gait and dizziness x 1 day, PT AAOX4, -SOB, NAD NOTED, VSS, PENDING MD VENTURA
[2019-11-12 16:21] LABS: BASOPHILS # (AUTO) 0.1 /CMM (0.0-0.2); BASOPHILS % (AUTO) 1.4 % (0.0-2.0); EOSINOPHILS % (AUTO) 3.3 % (0.0-6.0); HEMATOCRIT 41 % (39-51); HEMOGLOBIN 13.6 g/dL (13.5-17.5); LYMPHOCYTES # (AUTO) 2.2 /CMM (0.8-4.8); LYMPHOCYTES % (AUTO) 29.2 % (20.0-44.0); MEAN CORPUSCULAR HGB CONC 33 g/dl (31.0-36.0); MEAN CORPUSCULAR VOLUME 95 fL (80-96); MONOCYTES # (AUTO) 0.7 /CMM (0.1-1.30); MONOCYTES % (AUTO) 9.8 % (2.0-12.0); NEUTROPHILS # (AUTO) 4.3 /CMM (1.8-8.9); NEUTROPHILS % (AUTO) 56.3 % (43.0-81.0); PLATELET COUNT (AUTO) 260 /CMM (150-450); RED BLOOD CELL COUNT(AUTO) 4.36 MIL/uL (4.5-6.0); WHITE BLOOD COUNT (AUTO) 7.6 K/uL (4.3-11.0)
[2019-11-12 16:31] LABS: CARBON DIOXIDE 23 mmol/L (21-32); CHLORIDE 106 mmol/L (98-107); CREATININE 1.1 mg/dL (0.6-1.3); GLUCOSE 151 mg/dL (74-106); POTASSIUM 3.6 mmol/L (3.5-5.1); SODIUM SERUM 144 mmol/L (136-145); UREA NITROGEN, BLOOD 15 mg/dL (7-18)
--- NOTE | 2019-11-12 16:49 | NUR ---
URINE COLLECTED AND SENT TO LAB
[2019-11-12 17:05] LABS: APPEARANCE,URINE Clear (CLEAR); BILIRUBIN,URINE Negative (NEGATIVE); BLOOD, URINE Negative Ery/uL (NEGATIVE); COLOR,URINE Yellow (YELLOW); KETONES,URINE Trace (NEGATIVE); LEUKOCYTE ESTERASE ,URINE Negative (NEGATIVE); NITRITE, URINE Negative (NEGATIVE); PROTEIN,URINE Trace mg/dl (NEGATIVE); UGLUCOSE Negative (NEGATIVE); UROBILINOGEN,URINE 0.2 EU/dL (0.2)
[2019-11-12 17:09] LABS: PH,URINE >9.0 (5.0-8.0)
[2019-11-12 17:19] LABS: BACTERIA,URINE Few /HPF (None Seen); RBC,URINE NONE SEEN /HPF (0-2); SQUAMOUS EPITHELIAL CELL,UR Few /HPF (None Seen); WBC,URINE NONE SEEN /HPF (0-3)
[2019-11-12 17:44] VITALS: BP 134/68
--- NOTE | 2019-11-12 17:44 | NUR ---
SPOKED TO COBY AMOR
== END 2019-11-12 17:55 | disposition home or self-care (01) ==
LOC: ER 15:42
DX: K59.00 Constipation, unspecified (principal); R42 Dizziness and giddiness; E11.621 Type 2 diabetes mellitus with foot ulcer; D64.9 Anemia, unspecified; I10 Essential (primary) hypertension; N40.0 Benign prostatic hyperplasia without lower urinary tract symptoms; E78.00 Pure hypercholesterolemia, unspecified; Z60.2 Problems related to living alone; Z79.899 Other long term (current) drug therapy; Z79.84 Long term (current) use of oral hypoglycemic drugs
CPT/HCPCS: 36415; 71045; 80048; 81001; 84484; 85025; 93005 ×2; 96360; 99285; J7030; 81000-TC

== ENCOUNTER 2021-06-15 12:12 | Emergency (ER) | payer OTHER ==
[~2021-06-15] VITALS: Ht 180.3 cm; Wt 88.9 kg
[~2021-06-15 12:12] MED LIST changes: +AMLO-213 PO; -AMLO10TA7 PO; -PANT40TA4 PO; +PANT40TA49 PO
--- NOTE | 2021-06-15 12:50 | NUR ---
TO ER BED 10 AWAITING MD VENTURA
--- NOTE | 2021-06-15 12:52 | NUR ---
DR LAGUNAS AT BEDSIDE FOR EVAL.
[2021-06-15] MEDS ORDERED: IV NS 0.9% 1,000 ML BAG IV ONE (13:30)
[2021-06-15 13:49] LABS: BASOPHILS % (AUTO) 0.6 % (0.0-2.0); EOSINOPHILS % (AUTO) 1.2 % (0.0-6.0); HEMATOCRIT 40 % (39-51); HEMOGLOBIN 13.3 g/dL (13.5-17.5); LYMPHOCYTES # (AUTO) 1.6 K/uL (0.8-4.8); MEAN CORPUSCULAR HGB CONC 33 g/dl (31.0-36.0); MEAN CORPUSCULAR VOLUME 96 fL (80-96); MONOCYTES # (AUTO) 0.5 K/uL (0.1-1.30); NEUTROPHILS # (AUTO) 3.7 K/uL (1.8-8.9); NEUTROPHILS % (AUTO) 63.2 % (43.0-81.0); PLATELET COUNT (AUTO) 199 K/uL (150-450); RED BLOOD CELL COUNT(AUTO) 4.22 MIL/uL (4.5-6.0); WHITE BLOOD COUNT (AUTO) 5.9 K/uL (4.3-11.0)
[2021-06-15 13:53] LABS: CALCIUM, SERUM 8.7 mg/dL (8.5-10.1); POTASSIUM 3.9 mmol/L (3.5-5.1)
[2021-06-15] MEDS ORDERED: OXYC5CAP18 PO (14:42)
--- NOTE | 2021-06-15 15:00 | NUR ---
Patient discharged to home in stable condition. Written and verbal after care instructions given. Patient verbalizes understanding of instruction.IV removed. Catheter intact and site benign. Pressure and 4x4 applied to site. No bleeding noted.
[2021-06-15 15:53] VITALS: BP 108/60
== END 2021-06-15 15:54 | disposition home or self-care (01) ==
LOC: ER 12:18
DX: M79.662 Pain in left lower leg (principal); M79.661 Pain in right lower leg; G25.81 Restless legs syndrome; I10 Essential (primary) hypertension; E11.9 Type 2 diabetes mellitus without complications; N40.0 Benign prostatic hyperplasia without lower urinary tract symptoms; E78.00 Pure hypercholesterolemia, unspecified; Z98.890 Other specified postprocedural states; Z60.2 Problems related to living alone; Z79.899 Other long term (current) drug therapy; Z79.84 Long term (current) use of oral hypoglycemic drugs
CPT/HCPCS: 36415; 72131; 80048; 85025; 99284; J7040

== ENCOUNTER 2022-01-07 10:22 | Emergency (ER) | payer OTHER ==
[~2022-01-07] VITALS: Ht 180.3 cm; Wt 91.6 kg
[~2022-01-07 10:22] MED LIST changes: +OXYC5CAP18 PO
--- NOTE | 2022-01-07 10:59 | NUR ---
86 yrs male walking in with sone c/o not feeling will diness sob h/l
--- NOTE | 2022-01-07 11:00 | NUR ---
inserted ango catheter # [address] for arm blood drow and sent to lab resting at this time
[2022-01-07 11:11] LABS: BASOPHILS # (AUTO) 0.1 K/uL (0.0-0.2); BASOPHILS % (AUTO) 0.7 % (0.0-2.0); EOSINOPHILS % (AUTO) 2.5 % (0.0-6.0); HEMATOCRIT 41 % (39-51); HEMOGLOBIN 13.4 g/dL (13.5-17.5); LYMPHOCYTES # (AUTO) 1.6 K/uL (0.8-4.8); LYMPHOCYTES % (AUTO) 20.6 % (20.0-44.0); MEAN CORPUSCULAR HGB CONC 33 g/dl (31.0-36.0); MEAN CORPUSCULAR VOLUME 94 fL (80-96); MONOCYTES # (AUTO) 0.6 K/uL (0.1-1.30); MONOCYTES % (AUTO) 7.9 % (2.0-12.0); NEUTROPHILS # (AUTO) 5.2 K/uL (1.8-8.9); NEUTROPHILS % (AUTO) 68.3 % (43.0-81.0); PLATELET COUNT (AUTO) 188 K/uL (150-450); RED BLOOD CELL COUNT(AUTO) 4.34 MIL/uL (4.5-6.0); WHITE BLOOD COUNT (AUTO) 7.6 K/uL (4.3-11.0)
--- NOTE | 2022-01-07 11:13 | NUR ---
BROUGHT TO RADIOLOGY DEPT FOR CT SCAN.
[2022-01-07 11:17] LABS: CALCIUM, SERUM 8.6 mg/dL (8.5-10.1); CARBON DIOXIDE 28 mmol/L (21-32); CHLORIDE 108 mmol/L (98-107); CREATININE 0.9 mg/dL (0.6-1.3); GLUCOSE 148 mg/dL (74-106); POTASSIUM 4.3 mmol/L (3.5-5.1); SODIUM SERUM 139 mmol/L (136-145); UREA NITROGEN, BLOOD 15 mg/dL (7-18)
[2022-01-07 11:24] LABS: ALANINE AMINOTRANSFERASE 30 U/L (12-78); ALBUMIN 3.3 g/dL (3.4-5.0); ALKALINE PHOSPHATASE 81 U/L (46-116); ASPARTATE AMINOTRANSFERASE 27 U/L (15-37); BILIRUBIN,DIRECT 0.1 mg/dL (0.0-0.2); BILIRUBIN,TOTAL 0.5 mg/dL (0.2-1.0); TOTAL PROTEIN, SERUM 6.6 g/dL (6.4-8.2)
--- NOTE | 2022-01-07 11:42 | NUR ---
wating for lab result no pain
--- NOTE | 2022-01-07 12:00 | NUR ---
UA SENT TO LAB Voiding 30ml clear yellow color wating for result
[2022-01-07 12:37] LABS: BILIRUBIN,URINE NEGATIVE (NEGATIVE); COLOR,URINE YELLOW (YELLOW); LEUKOCYTE ESTERASE ,URINE NEGATIVE (NEGATIVE); NITRITE, URINE NEGATIVE (NEGATIVE); PH,URINE 6.5 (5.0-8.0); PROTEIN,URINE NEGATIVE (NEGATIVE); UGLUCOSE NEGATIVE (NEGATIVE); UROBILINOGEN,URINE 0.2 EU/dL (0.2)
[2022-01-07 12:47] LABS: BACTERIA,URINE None seen /HPF (None Seen); RBC,URINE NONE SEEN /HPF (0-2); SQUAMOUS EPITHELIAL CELL,UR Few /HPF (None Seen); WBC,URINE NONE SEEN /HPF (0-3)
--- NOTE | 2022-01-07 13:06 | NUR ---
wating for ua result resting at this time
--- NOTE | 2022-01-07 13:53 | NUR ---
D/C INSTRACTION GIVEN to pt and son fully and verblized understood d/c home with rx and faalow up care verblized understood
[2022-01-07 14:06] VITALS: BP 148/76
== END 2022-01-07 14:08 | disposition home or self-care (01) ==
LOC: ER 10:25
DX: R53.1 Weakness (principal); R94.31 Abnormal electrocardiogram [ECG] [EKG]; I10 Essential (primary) hypertension; E11.621 Type 2 diabetes mellitus with foot ulcer; Z87.438 Personal history of other diseases of male genital organs; Z87.442 Personal history of urinary calculi; Z60.2 Problems related to living alone; Z79.84 Long term (current) use of oral hypoglycemic drugs; Z79.899 Other long term (current) drug therapy
CPT/HCPCS: 36415; 70450-TC; 71045-TC; 80048-TC; 80076-TC; 81001; 84484-TC; 85025-TC

== ENCOUNTER 2022-04-09 19:55 | Emergency (ER) | payer OTHER ==
[~2022-04-09] VITALS: Ht 162.6 cm; Wt 91.6 kg
--- NOTE | 2022-04-09 20:30 | NUR ---
BIBSELF C/O FEELING WEAK X FEW WEEKS, DIZZY AND HAVING TROUBLE STANDING AND WALKING. PATIENT ALERT AND ORIENTED X3. AMBULATORY WITH NON LABORED BREATHING IN BED 06 ON MONITOR AND POX AWAITING MD VETNURA.
--- NOTE | 2022-04-09 20:39 | NUR ---
BLOOD COLLECTED AND SENT TO LAB
--- NOTE | 2022-04-09 20:43 | NUR ---
COVID SWAB DONE AND SENT TO LAB
--- NOTE | 2022-04-09 20:47 | NUR ---
EMT AT BEDSIDE FOR EKG
[2022-04-09 20:54] LABS: BASOPHILS % (AUTO) 0.2 % (0.0-2.0); EOSINOPHILS % (AUTO) 0.6 % (0.0-6.0); HEMATOCRIT 41 % (39-51); HEMOGLOBIN 13.3 g/dL (13.5-17.5); LYMPHOCYTES # (AUTO) 1.4 K/uL (0.8-4.8); MEAN CORPUSCULAR HGB CONC 32 g/dl (31.0-36.0); MEAN CORPUSCULAR VOLUME 94 fL (80-96); MONOCYTES % (AUTO) 6.7 % (2.0-12.0); NEUTROPHILS # (AUTO) 12.9 K/uL (1.8-8.9); NEUTROPHILS % (AUTO) 83.5 % (43.0-81.0); PLATELET COUNT (AUTO) 197 K/uL (150-450); RED BLOOD CELL COUNT(AUTO) 4.38 MIL/uL (4.5-6.0); WHITE BLOOD COUNT (AUTO) 15.5 K/uL (4.3-11.0)
[2022-04-09 21:06] LABS: CALCIUM, SERUM 8.7 mg/dL (8.5-10.1); CARBON DIOXIDE 27 mmol/L (21-32); CHLORIDE 106 mmol/L (98-107); GLUCOSE 185 mg/dL (74-106); POTASSIUM 3.2 mmol/L (3.5-5.1); SODIUM SERUM 142 mmol/L (136-145); UREA NITROGEN, BLOOD 15 mg/dL (7-18)
[2022-04-09 21:13] LABS: ALANINE AMINOTRANSFERASE 32 U/L (12-78); ALBUMIN 3.7 g/dL (3.4-5.0); ALKALINE PHOSPHATASE 82 U/L (46-116); ASPARTATE AMINOTRANSFERASE 16 U/L (15-37); BILIRUBIN,DIRECT 0.1 mg/dL (0.0-0.2); BILIRUBIN,TOTAL 0.5 mg/dL (0.2-1.0); TOTAL PROTEIN, SERUM 7.2 g/dL (6.4-8.2)
--- NOTE | 2022-04-09 21:56 | NUR ---
URINE COLLECTED AND SENT TO LAB
[2022-04-09 22:50] LABS: BILIRUBIN,URINE NEGATIVE (NEGATIVE); COLOR,URINE YELLOW (YELLOW); LEUKOCYTE ESTERASE ,URINE NEGATIVE (NEGATIVE); NITRITE, URINE NEGATIVE (NEGATIVE); PH,URINE 6.5 (5.0-8.0); PROTEIN,URINE TRACE mg/dl (NEGATIVE); UGLUCOSE NEGATIVE (NEGATIVE); UROBILINOGEN,URINE 0.2 EU/dL (0.2)
[2022-04-09 22:58] LABS: BACTERIA,URINE None seen /HPF (None Seen); RBC,URINE 0-2 /HPF (0-2); SQUAMOUS EPITHELIAL CELL,UR Few /HPF (None Seen); WBC,URINE 0-2 /HPF (0-3)
--- NOTE | 2022-04-09 23:40 | NUR ---
PER IRIS WITH REGAMARI CM, LOOKING FOR PLACEMENT AT A SNF FOR PT.
--- NOTE | 2022-04-10 01:45 | NUR ---
SPOKE TO NICOLE AT [facility] AND INFORMED HER THAT OUR ER DR FANNIE CARL IS REQUESTING HOSPITAL ADMISSION. NICOLE WILL WORK ON IT
--- NOTE | 2022-04-10 02:25 | NUR ---
faxed 's note "stable for transfer" to [facility]
--- NOTE | 2022-04-10 04:14 | NUR ---
PT ACCEPTED AT [facility] ROOM 204-A SHELDON ARVIZU FOR REPORT AMBULANCE AUTH #[id number] Addendum: 04/10/22 at 0417 [address] CONCEPCI[facility]N ACCEPTING DR: DR HENNESSY
--- NOTE | 2022-04-10 04:19 | NUR ---
[facility] ETA 90-125 MINS
[2022-04-10 05:54] VITALS: BP 125/95
--- NOTE | 2022-04-10 05:58 | NUR ---
[facility] at bed side to pickling grader the pt
--- NOTE | 2022-04-10 06:04 | NUR ---
REPORT GIVEN TO SHELDON ARVIZU AT [facility]
--- NOTE | 2022-04-10 06:12 | NUR ---
pt was transferred to [facility] in stable condition.
== END 2022-04-10 06:14 | disposition short-term general hospital (02) ==
LOC: ER 19:58
DX: R26.2 Difficulty in walking, not elsewhere classified (principal); R53.1 Weakness; Z20.822 Contact with and (suspected) exposure to COVID-19; D72.829 Elevated white blood cell count, unspecified; R53.83 Other fatigue; I45.2 Bifascicular block; N40.0 Benign prostatic hyperplasia without lower urinary tract symptoms; Z86.31 Personal history of diabetic foot ulcer; E11.9 Type 2 diabetes mellitus without complications; I10 Essential (primary) hypertension; Z79.84 Long term (current) use of oral hypoglycemic drugs; Z79.899 Other long term (current) drug therapy
CPT/HCPCS: 36415; 70450-TC; 71045-TC; 80048-TC; 80076-TC; 81001; 84484-TC; 85025-TC; 85730-TC; 86850-TC; C9803

== ENCOUNTER 2022-09-10 17:46 | Emergency (ER) | payer OTHER ==
[~2022-09-10] VITALS: Ht 180.3 cm; Wt 86.2 kg
--- NOTE | 2022-09-10 18:58 | NUR ---
C/O R knee/lower extremity bruising since falling down 4 days ago. sent from urgent care for further eval.
--- NOTE | 2022-09-10 19:10 | NUR ---
AT BEDSIDE FOR EVAL
[2022-09-10 20:05] VITALS: BP 138/77
[2022-09-10] MEDS ORDERED: CEPH500C2 PO (20:10)
--- NOTE | 2022-09-10 20:19 | NUR ---
Patient discharged to home in stable condition. Written and verbal after care instructions given. Patient verbalizes understanding of instruction.
== END 2022-09-10 20:20 | disposition home or self-care (01) ==
LOC: ER 17:46
DX: S80.01XA Contusion of right knee, initial encounter (principal); S00.83XA Contusion of other part of head, initial encounter; I10 Essential (primary) hypertension; E11.621 Type 2 diabetes mellitus with foot ulcer; E11.9 Type 2 diabetes mellitus without complications; N40.0 Benign prostatic hyperplasia without lower urinary tract symptoms; Z87.442 Personal history of urinary calculi; W01.10XA Fall on same level from slipping, tripping and stumbling with subsequent striking against unspecified object, initial encounter; Y93.89 Activity, other specified; Y92.89 Other specified places as the place of occurrence of the external cause; Y99.8 Other external cause status; Z60.2 Problems related to living alone